=== PATIENT | female | born 1965 | race Caucasian/White ===

== ENCOUNTER 2019-09-18 18:11 | Inpatient (IN) | payer MEDICAID, SELFPAY ==
[2019-09-18 18:12] VITALS: BP 161/112; PULSE 92; RESP 18; TEMP 36.6; O2SAT 99; BMI 25.0
[2019-09-18 18:21] VITALS: BP 128/96; PULSE 86; RESP 79; TEMP 36.9; O2SAT 100
--- NOTE | 2019-09-18 18:21 | EKG12_ITS ---
Test Reason : Blood Pressure : / mmHG Vent. Rate : 081 BPM Atrial Rate : 081 BPM P-R Int : 134 ms QRS Dur : 082 ms QT Int : 382 ms P-R-T Axes : 081 068 066 degrees QTc Int : 443 ms Sinus rhythm with marked sinus arrhythmia Right atrial enlargement Borderline ECG Confirmed by BERE MCLEAN, JEYSON ([id number]), editor news VINEET SMITH ([id number]) on 09/22/2019 10:44:45 AM Referred By: Confirmed By:JEYSON BLACKBURN MD
--- NOTE | 2019-09-18 18:25 | NURSING ---
NO OLD EKGS
[2019-09-18 19:01] LABS: AST(SGOT) 14 U/L (15-37); Alanine Aminotransfer ALT/SGPT 17 U/L (13-56); Albumin, Serum 4.4 g/dL (3.2-5.0); Alkaline Phosphatase 56 U/L (45-117); Anion Gap 4 (5-15); BUN 8 mg/dL (7-18); BUN/Creat Ratio 9.7 RATIO (10-20); Calcium,Total 9.6 mg/dL (8.5-10.1); Chloride 111 mmol/L (98-107); Creatinine, Serum 0.82 mg/dL (0.55-1.02); EST Glomerular Filtration Rate 77 mL/min (>60); Est Glom Filt Rate - Afr Amer 93 mL/min (>60); Estimated Creatinine Clearance 74.28 ml/min; Globulin 4.2 g/dL (2.2-4.2); Glucose 96 mg/dL (74-106); Potassium 3.8 mmol/L (3.5-5.1); Protein, Total 8.6 g/dL (6.4-8.2); Sodium Level 143 mmol/L (136-145)
--- NOTE | 2019-09-18 19:19 | CM.ED ---
Social Work Consult: Substance Abuse Informant: Self Referral. Met with patient in room. Introduced self and social media coordinator role. Patient agreeable to speak with this social media coordinator. Patient states to be seeking medical managed of withdrawal symptoms. Patient state Heroine and Alcohol as substance of choice. Patient states last use of Heroine was this morning and Alcohol was last night. Patient states to consume 3-4 tall boys a night. Patient denies any mental health history. Patient states to have had a suicide attempt when I was younger but no active/recent suicidal thoughts/plans/intents. Patient states to have four adult children that are supportive. Patient state that patient spouse from an overdose on June 12, 2019. Patient was actually using with spouse at the time of the overdose and reports guilt in feeling that patient might have been able to safe him. This social media coordinator normalizing patient emotions/feelings. Patient tearful throughout conversation. Patient states to have relapsed a month ago and to have been sober for a month prior to that. Patient states to have abused substances for the past 12 years with on and off periods of being sober. Patient states no history of outpatient substance abuse resources and is hoping to be able to have follow up care after completing [facility] program. Patient denies having advanced care planning completed and declines further information. Support provided. Telephone call to [facility] treatment Navigator, Stefan. This social media coordinator providing Stefan with above information. Stefan noting need for grief counseling for patient as well. Stefan plans to see patient on Saturday (09/20/2019). PLAN: Admit to [facility] program. Manjeet GOODMAN, RACHEL
[2019-09-18 19:22] LABS: Amphetamine Urine VISTA NEGATIVE (<1000 ng/mL); Barbiturate Urine VISTA NEGATIVE (< 200 ng/mL); Benzodiazepine Urine VISTA NEGATIVE (< 200 ng/mL); Cocaine Urine VISTA NEGATIVE (< 300 ng/mL); Ecstacy Urine VISTA NEGATIVE (< 500 ng/mL); Methadone Urine VISTA NEGATIVE (< 300 ng/mL); PCP Urine VISTA NEGATIVE (< 25 ng/mL); THC Urine VISTA NEGATIVE (< 50 ng/mL); Vista UDS pH Range 6
--- NOTE | 2019-09-18 19:58 | ED.DCSUM_ITS ---
History of Present Illness Chief Complaint: Substance Abuse Detail of Chief Complaint: [facility] out program Informant: Patient Onset: Today Context: Sudden Onset Timing: Continuous Quality: Withdrawal symptoms Location: Generalized Current Severity: Mild Maximum Severity: Mild Worsened by: Has not had any alcoholic beverage since 1829 yesterday Relieved by: Last dose of heroin 0530. Associated Symptoms: Tremors, shakes, nausea Narrative: Patient is a 53-year-old woman who drinks daily. She has 3 large malt liquors a day. She also snorts 1 g of heroin a day. She has been using heroin for 8 years. Daily alcohol years for 1 year. She is been unemployed since 1998. She lives with her son. She denies fever, chills or night sweats. She denies ocular, visual auditory symptoms. She denies chest tightness or heaviness. She denies shortness of breath or difficulty breathing. She denies contact with anyone is been ill or diagnosed with COVID. She does complain of mild abdominal pain with nausea. She denies urologic symptoms. There is no history of trauma. Prior similar symptoms: No Recent Illness/Hospitalization: No - Past Medical History (1) History of hypertension Status: Acute (2) Alcoholism /alcohol abuse Status: Acute (3) Heroin abuse Status: Acute Past Medical History - Allergies and Home Meds Allergies/Adverse Reactions: Allergies tramadol Allergy (Verified 09/18/19 18:14) PT UNSURE OF REACTION Primary Care Physician: Yuli Cox DO [Primary Care Provider] - Prior records reviewed: No Surgical History: noncontributory Lives: With Family Smoking Status: Current every day smoker Alcohol: Heavy - daily use and heavy Drugs: Heroin Review of Systems General: Reports: Malaise. Denies: Chills, Fever, Sweats Eyes: Denies: Visual changes - bilaterally, Blurred Vision - bilaterally ENT: Reports: Rhinorrhea. Denies: Bilateral ear pain, Sore throat Cardiovascular: Reports: Palpitations. Denies: Chest pain Respiratory: Denies: Dyspnea, Cough, Sputum Gastrointestinal: Reports: Abdominal pain, Nausea. Denies: Vomiting, Diarrhea, Constipation Genitourinary: Denies: Dysuria, Hematuria, Frequency Musculoskeletal: Denies: Myalgias, Arthralgias, Neck pain, Back pain, Swelling, Extremity Pain, -, - Skin: Reports: Wounds. Denies: Rash Neurological: Denies: Headache Endocrine: Denies: Polyuria, Polydipsia Hematologic: Denies: Easy bruising, Easy bleeding Allergy: Denies: Uticaria Physical Exam Vital Signs/Narrative: Vital Signs Temp Pulse Resp BP Pulse Ox 09/18/19 18:21 98.5 F 86 79 H 128/96 H 100 09/18/19 18:12 97.8 F 92 18 161/112 H 99 Inital Vital Signs reviewed: Yes General: Well nourished, Well developed, - - And is tearful. She appears embarrassed. Head: Normocephalic, Atraumatic Eyes: Perrl, EOMI, - - No nystagmus.. Negative for: Pale conjunctiva, Scleral icterus ENT: No rhinorrhea, TM's clear Neck: Supple, Nontender Cardiovascular: Regular rate, Regular rhythm, No murmurs, Normal S1, Normal S2 Respiratory: No distress, CTA bilaterally Abdomen: Soft, Nondistended, No masses, Tender, Hyperactive bowel sounds. Negative for: Nontender, Normal bowel sounds, Guarding, Rebound tenderness Rectal: Deferred Back: Nontender, Normal Inspection Extremities: Nontender, No edema Skin: Normal color, No rash. Negative for: Cyanosis, Diaphoresis, Jaundice Neurological: Alert, Oriented x3, Cranial nerves II-XII grossly intact, Normal Strength, Normal Sensation, Normal DTR Psychological: Depressed, Tearful Diagnostic/Tx/Re-eval Laboratory Results 09/18/19 09/18/19 09/18/19 18:30 18:30 18:45 Sodium 143 Potassium 3.8 Chloride 111 H Carbon Dioxide 28.0 Anion Gap 4 L BUN 8 Creatinine 0.82 Estim Creat Clear Calc 74.28 Est GFR (MDRD) Af Amer 93 Est GFR (MDRD) Non-Af 77 BUN/Creatinine Ratio 9.7 L Glucose 96 Calcium 9.6 Total Bilirubin 1.10 H AST 14 L ALT 17 Alkaline Phosphatase 56 Total Protein 8.6 H Albumin 4.4 Globulin 4.2 Albumin/Globulin Ratio 1.0 Urine Opiates Screen NEGATIVE Urine Methadone Screen NEGATIVE Ur Barbiturates Screen NEGATIVE Ur Phencyclidine Scrn NEGATIVE Ur Amphetamines Screen NEGATIVE U Methamphetamin-MDMA NEGATIVE U Benzodiazepines Scrn NEGATIVE Urine Cocaine Screen NEGATIVE U Cannabinoids Screen NEGATIVE Ur Drug Screen Comment Ethyl Alcohol 8.0 Blood work is unremarkable. Alcohol level is negative. Patient was reexamined at 1954. She is now hyperreflexic. Heart rate is 100. She was treated with vena bar. Hospitalist was called for admission for detox. ED Disposition - Plan for ED Patient: Disposition: Acute Care Hospital [facility] Diagnosis: Alcohol withdrawal, Heroin abuse Referrals: Yuli Cox DO [Primary Care Provider] -
--- NOTE | 2019-09-18 20:01 | PCM.HP.STD ---
Problem List (1) History of hypertension Status: Chronic (2) Alcoholism /alcohol abuse Status: Chronic (3) Heroin abuse Status: Chronic (4) Alcohol withdrawal Status: Acute (5) Narcotic withdrawal Status: Acute History of Present Illness Date of Admission: 09/18/19 Chief Complaint: Alcohol and heroin withdrawal. The patient is a 53 year old F with a significant history of tobacco abuse; epilepsy; alcoholic dependence and heroin dependence presenting with alcohol and heroin withdrawal symptoms. Reportedly she drinks 3-4 bottles of twisted tea or ' everett' daily. She has been drinking for 1 year. Last time she drank was around 6:30 PM on the day before presentation. Also she has been using 1 g of heroin every day. She snorts heroin. The last time she used heroin was 5:30 AM on the day of presentation. She reports withdrawal symptoms of nausea, diarrhea, diaphoresis, chills, tremors, anxiety, restlessness and restless legs. Of note her in June 2019 with heroin overdose. Past Medical History Past Medical History (Chronic Problems): Chronic Problems History of hypertension (Chronic) Alcoholism /alcohol abuse (Chronic) Heroin abuse (Chronic) Allergies tramadol Allergy (Verified 09/18/19 18:14) PT UNSURE OF REACTION Home Medications: Ambulatory Orders Medication Instructions Recorded Gabapentin [Neurontin] 800 mg PO TIDCM 09/18/19 traZODone [Desyrel] 50 mg PO QHS 09/18/19 Surgical History: cholecystectomy, hysterectomy, - - section; 2 back surgeries; Smoking Status: Current every day smoker Tobacco Use: Cigarettes Alcohol: Heavy Drugs: Marijuana - Marijuana pills Review of Systems Constitutional: Reports: Chills. Denies: Fever, Weight Change HEENT: Denies: Head Aches, Sinus Congestion, Sinus Drainage Cardiovascular: Denies: Chest Pain, Palpitations Respiratory: Denies: Cough, Shortness of breath at rest, Sputum production Gastrointestinal: Reports: Diarrhea, Nausea. Denies: Abdominal Pain, Vomiting Genitourinary: Denies: Dysuria Musculoskeletal: Denies: Joint Pain, Joint Tenderness Skin: Denies: Rash, Wounds Neurological: Reports: Tremor. Denies: Focal weakness, Numbness, Tingling Psychiatric: Reports: Anxiety. Denies: Depression, Homicidal Ideations, Suicidal Ideations Hematologic/ Lymphatic: Denies: Easy Bruising, Easy Bleeding VTE Information - Inpt Only VTE Present on Admission: No VTE Mechan Device Prophylaxis: None VTE Pharm Prophylaxis ordered?: Yes Patient Problems: Active and Suspected Problems Alcohol withdrawal (Acute) Narcotic withdrawal (Acute) - Physical Exam Vitals/I&O's: Vital Signs Temp Pulse Resp BP Pulse Ox 98.5 F 86 79 H 128/96 H 100 09/18/19 18:21 09/18/19 18:21 09/18/19 18:21 09/18/19 18:21 09/18/19 18:21 Oxygen Delivery Method Room Air Weight: 70.307 kg Body Mass Index (BMI) 25.0 General: Alert, Oriented x3, Cooperative HEENT: Atraumatic, PERRLA, EOMI, Normocephalic Neck: Supple, No JVD, Negative Carotid Bruits Lungs: Clear to auscultation, Normal air movement, No rhonchi, No wheeze, No rales Cardiovascular: Regular rate, Regular Rhythm, Normal S1, Normal S2, No murmurs Abdomen: Bowel Sounds Present, Soft, Non Tender Extremities: No edema, Capillary Refill Less than 3 Seconds Skin: No rashes, No breakdown Musculoskeletal: No Tenderness to Palpation of Joints or Extremities Neurological: Cranial nerves II-XII grossly intact Psych/Mental Status: Normal Affect, Appropriate Laboratory Results 09/18/19 18:30: Sodium 143, Potassium 3.8, Chloride 111 H, Carbon Dioxide 28.0, Anion Gap 4 L, BUN 8, Creatinine 0.82, Estim Creat Clear Calc 74.28, Est GFR (MDRD) Af Amer 93, Est GFR (MDRD) Non-Af 77, BUN/Creatinine Ratio 9.7 L, Glucose 96, Calcium 9.6, Total Bilirubin 1.10 H, AST 14 L, ALT 17, Alkaline Phosphatase 56, Total Protein 8.6 H, Albumin 4.4, Globulin 4.2, Albumin/Globulin Ratio 1.0 09/18/19 18:30: Ethyl Alcohol 8.0 09/18/19 18:45: Urine Opiates Screen NEGATIVE, Urine Methadone Screen NEGATIVE, Ur Barbiturates Screen NEGATIVE, Ur Phencyclidine Scrn NEGATIVE, Ur Amphetamines Screen NEGATIVE, U Methamphetamin-MDMA NEGATIVE, U Benzodiazepines Scrn NEGATIVE, Urine Cocaine Screen NEGATIVE, U Cannabinoids Screen NEGATIVE, Ur Drug Screen Comment Assessment/Plan All Active Problems Alcohol withdrawal (Acute) Narcotic withdrawal (Acute) The patient is a 53 year old F with a significant history of tobacco abuse; epilepsy; alcoholic dependence and heroin dependence presenting with alcohol and heroin withdrawal symptoms and seeking detoxification. Alcohol dependence and withdrawal Received phenobarbital at emergency department. We will continue patient on phenobarbital taper and other adjunctive medications. Patient was counseled. Narcotic dependence and withdrawal We will put patient on Subutex taper and other adjunctive medication. Patient was counseled Case management consult. Tobacco abuse Counseled Nicotine patch prescribed. Epilepsy Home gabapentin continued Seizure precautions Marijuana abuse. She takes marijuana pills Counseled. DVT prophylaxis: Subcutaneous Lovenox. Inpatient E&M: 96809 Init Hosp L3
[2019-09-18] MEDS: Ondansetron 4 MG/2 ML Vial IV (20:16)
[2019-09-18] MEDS: Phenobarbital 32.4 MG Tablet 97.2 MG PO (20:17)
[2019-09-18 20:19] VITALS: BP 105/63; PULSE 83; RESP 16; TEMP 36.7; O2SAT 97
[2019-09-18 21:13] VITALS: BMI 25.7
[2019-09-18 21:19] VITALS: BP 128/80; PULSE 70; RESP 16; TEMP 36.8; O2SAT 99
[2019-09-18 21:22] VITALS: BMI 25.8
[2019-09-18] MEDS: Methocarbamol 750 MG Tablet 1500 MG PO (21:54)
[2019-09-18] MEDS: cloNIDine HCl 0.1 MG Tablet PO (21:55)
[2019-09-18] MEDS: Buprenorphine HCl 2 MG TAB.SUBL SL (21:55)
[2019-09-18] MEDS: traZODone 100 MG Tablet PO (21:55)
[2019-09-19] VITALS (7 sets, daily range): BP systolic 92–104; BP diastolic 40–64; PULSE 64–80; RESP 12–18; TEMP 36.3–36.9; O2SAT 92–100
[2019-09-19] MEDS: Dicyclomine 10 MG Capsule 20 MG PO (00:55)
[2019-09-19] MEDS: hydrOXYzine PAM 25 MG Capsule 50 MG PO ×2 (00:55→20:24)
[2019-09-19] MEDS: Phenobarbital 32.4 MG Tablet PO ×6 (00:55→20:15)
[2019-09-19] MEDS: Buprenorphine HCl 2 MG TAB.SUBL SL ×3 (05:15→22:08)
--- NOTE | 2019-09-19 08:38 | PCM.PROGNOTE ---
Patient Problems: Active and Suspected Problems Alcohol withdrawal (Acute) Narcotic withdrawal (Acute) Subjective: Chief complaint: Follow-up after admission for acute alcohol withdrawal and acute opioid withdrawal. Patient seen and examined. No acute events overnight. Still complaining of anxiety and restlessness as well as shakiness, some improvement reported. Still having diarrhea, no abdominal pain. Denied fever or chills. Her vital signs are stable. - Physical Exam Vitals/I&O's: Vital Signs Temp Pulse Resp BP Pulse Ox 98.3 F 69 16 92/56 L 92 09/19/19 05:20 09/19/19 05:20 09/19/19 05:20 09/19/19 05:20 09/19/19 07:55 Oxygen Delivery Method Room Air Weight: 159 lb 13.362 oz Body Mass Index (BMI) 25.7 General: Alert, Oriented x3, Cooperative, No apparent distress HEENT: Atraumatic, PERRLA, EOMI, Normocephalic Oral: Moist Mucosa, No Gingival or Mucosal Lesions/ Ulcerations Neck: Supple, No JVD, Negative Carotid Bruits, Trachea Midline, Thyroid Normal Size and Texture Lungs: Clear to auscultation, Normal air movement, No rhonchi, No wheeze, No rales Cardiovascular: Regular rate, Regular Rhythm, Normal S1, Normal S2, PMI Normal Abdomen: Bowel Sounds Present, Soft, Non Tender, Non-Distended, No Hepato-splenomegaly Extremities: No clubbing, No cyanosis, No edema Skin: No rashes, No breakdown Lymphatic: No Cervical, Supraclavicular, or Inguinal Adenopathy Neurological: Cranial nerves II-XII grossly intact, Neuro grossly intact Psych/Mental Status: Normal Affect, Appropriate, Alert and oriented to time, place, person, mood and affect Laboratory Results 09/18/19 18:30: Sodium 143, Potassium 3.8, Chloride 111 H, Carbon Dioxide 28.0, Anion Gap 4 L, BUN 8, Creatinine 0.82, Estim Creat Clear Calc 74.28, Est GFR (MDRD) Af Amer 93, Est GFR (MDRD) Non-Af 77, BUN/Creatinine Ratio 9.7 L, Glucose 96, Calcium 9.6, Total Bilirubin 1.10 H, AST 14 L, ALT 17, Alkaline Phosphatase 56, Total Protein 8.6 H, Albumin 4.4, Globulin 4.2, Albumin/Globulin Ratio 1.0 09/18/19 18:30: Ethyl Alcohol 8.0 09/18/19 18:45: Urine Opiates Screen NEGATIVE, Urine Methadone Screen NEGATIVE, Ur Barbiturates Screen NEGATIVE, Ur Phencyclidine Scrn NEGATIVE, Ur Amphetamines Screen NEGATIVE, U Methamphetamin-MDMA NEGATIVE, U Benzodiazepines Scrn NEGATIVE, Urine Cocaine Screen NEGATIVE, U Cannabinoids Screen NEGATIVE, Ur Drug Screen Comment Current Medications Al Hydroxide/Mg Hydroxide (Mylanta Ii) 30 ml PO Q6H PRN PRN PRN Reason: Gastric Burning Buprenorphine HCl (Buprenorphine Hcl) 4 mg SL Q8H [facility]; Taper Stop: 09/21/19 21:44 Last Admin: 09/19/19 05:15 Dose: 4 mg Documented by: Clonidine (Catapres) 0.1 mg PO Q8H PRN PRN PRN Reason: RESTLESSNESS Last Admin: 09/18/19 21:55 Dose: 0.1 mg Documented by: Dicyclomine HCl (Bentyl) 20 mg PO Q6H PRN PRN PRN Reason: abdominal discomfort Last Admin: 09/19/19 00:55 Dose: 20 mg Documented by: Enoxaparin Sodium (Lovenox) 40 mg SC DAILY [facility] Folic Acid (Folic Acid) 1 mg PO DAILY@0800 [facility] Gabapentin (Neurontin) 800 mg PO TIDCM [facility] Hydroxyzine Pamoate (Vistaril Pamoate Capsule) 50 mg PO Q4H PRN PRN PRN Reason: mild anxiety Last Admin: 09/19/19 00:55 Dose: 50 mg Documented by: Loperamide HCl (Imodium) 2 mg PO Q4H PRN PRN PRN Reason: LOOSE STOOLS Methocarbamol (Methocarbamol) 1,500 mg PO Q6H PRN PRN PRN Reason: MUSCLE SPASM Last Admin: 09/18/19 21:54 Dose: 1,500 mg Documented by: Nicotine (Nicoderm Cq (Pbkc)) 21 mg TRANSDERM. DAILY [facility] Ondansetron HCl (Zofran) 8 mg PO Q8H PRN PRN PRN Reason: NAUSEA Phenobarbital (Phenobarbital) 97.2 mg PO Q4H [facility]; Taper Stop: 09/23/19 08:59 Last Admin: 08/08/20 05:15 Dose: 97.2 mg Documented by: Sodium Chloride () 10 - 40 ml IV UD PRN PRN Reason: SALINE FLUSH Thiamine HCl (Vitamin B1) 100 mg PO DAILYCM [facility] Trazodone HCl (Desyrel) 100 mg PO QHS PRN PRN Reason: INSOMNIA Last Admin: 09/18/19 21:55 Dose: 100 mg Documented by: Medical Necessity - Tobacco Use Smoking Status: Current every day smoker Tobacco Use: Cigarettes Assessment/Plan All Active Problems Alcohol withdrawal (Acute) Narcotic withdrawal (Acute) This is a 53 years old female patient presented to the emergency department requesting admission for acute alcohol and acute opiate withdrawal for medical stabilization. #1 acute alcohol withdrawal: She is on tapering phenobarbital, thiamine and folic acid. BMP and LFT were unremarkable. Urine drug screen was negative. Blood alcohol level was 8. Her vital signs are stable. Patient reported minimal improvement, definitely better than yesterday. Patient still symptomatic, requiring inpatient treatment and she qualifies for high-level care. Plan to continue same treatment. #2 acute opiate withdrawal: She is on Subutex taper, PRN Catapres, Bentyl, Vistaril, Imodium, methocarbamol, Zofran and trazodone. Urine drug screen was negative. Plan to continue same treatment. #3 seizure disorder: Stable, continue on gabapentin 3 times daily #4 tobacco abuse: She is on NicoDerm patch. #5 DVT prophylaxis: Subcu Lovenox. This note was generated with [employer] dictation software. It may contain incorrect words, spelling, and punctuation that were not noted in checking the note before signing. Inpatient E&M: 79889 Subs Hosp L2
[2019-09-19] MEDS: Enoxaparin 40 MG/0.4 ML Syringe SC (09:24)
[2019-09-19] MEDS: Thiamine Hydrochloride 100 MG Tablet PO (09:24)
[2019-09-19] MEDS: Gabapentin 800 MG Tablet PO ×3 (09:24→16:31)
[2019-09-19] MEDS: Folic Acid 1 MG Tablet PO (09:24)
[2019-09-19] MEDS: Loperamide 2 MG Capsule PO (12:46)
[2019-09-19] MEDS: 0.9% Saline Lock 10 ML Syringe IV (16:31)
[2019-09-19] MEDS: Methocarbamol 750 MG Tablet 1500 MG PO (20:24)
[2019-09-19] MEDS: traZODone 100 MG Tablet PO (22:14)
--- NOTE | 2019-09-19 22:14 | NURSING ---
Cat RN gave two 50 mg tabs of Trazodone to equal 100 mg & personally verified the med with me.
[2019-09-20] MEDS: Phenobarbital 32.4 MG Tablet PO ×6 (01:01→20:52)
[2019-09-20] MEDS: 0.9% Saline Lock 10 ML Syringe IV (05:18)
[2019-09-20] MEDS: Buprenorphine HCl 2 MG TAB.SUBL SL ×3 (05:18→20:52)
[2019-09-20 05:21] VITALS: BP 104/45; PULSE 77; RESP 16; TEMP 36.9; O2SAT 93
--- NOTE | 2019-09-20 08:11 | PN_ITS ---
Patient Problems: Active and Suspected Problems Alcohol withdrawal (Acute) Narcotic withdrawal (Acute) Subjective: Chief complaint: Follow-up after admission for acute alcohol and acute opioid withdrawal. Patient seen and examined. No acute events overnight. Patient reported that anxiety and restlessness continue to improve slowly. She was able to sleep last night. Still having some diarrhea but improved. Her vital signs are stable. - Physical Exam Vitals/I&O's: Vital Signs Temp Pulse Resp BP Pulse Ox 98.5 F 77 16 104/45 L 93 09/20/19 05:21 09/20/19 05:21 09/20/19 05:21 09/20/19 05:21 09/20/19 05:21 Oxygen Delivery Method Room Air Weight: 159 lb 13.362 oz Body Mass Index (BMI) 25.7 Intake and Output for Last 24 Hours 09/18/19 09/19/19 09/20/19 23:59 23:59 23:59 Intake Total 3300 / 3300 Balance 3300 / 3300 General: Alert, Oriented x3, Cooperative, No apparent distress HEENT: Atraumatic, PERRLA, EOMI, Normocephalic Oral: Moist Mucosa, No Gingival or Mucosal Lesions/ Ulcerations Neck: Supple, No JVD, Negative Carotid Bruits, Trachea Midline, Thyroid Normal Size and Texture Lungs: Clear to auscultation, Normal air movement, No rhonchi, No wheeze, No rales Cardiovascular: Regular rate, Regular Rhythm, Normal S1, Normal S2, No murmurs, PMI Normal Abdomen: Bowel Sounds Present, Soft, Non Tender, Non-Distended, No Hepato- splenomegaly Extremities: No clubbing, No cyanosis, No edema Skin: No rashes, No breakdown Lymphatic: No Cervical, Supraclavicular, or Inguinal Adenopathy Neurological: Cranial nerves II-XII grossly intact, Neuro grossly intact Psych/Mental Status: Normal Affect, Appropriate, Alert and oriented to time, place, person, mood and affect Current Medications Al Hydroxide/Mg Hydroxide (Mylanta Ii) 30 ml PO Q6H PRN PRN PRN Reason: Gastric Burning Buprenorphine HCl (Buprenorphine Hcl) 2 mg SL Q8H [facility]; Taper Stop: 09/21/19 21:44 Last Admin: 09/20/19 05:18 Dose: 2 mg Documented by: Clonidine (Catapres) 0.1 mg PO Q8H PRN PRN PRN Reason: RESTLESSNESS Last Admin: 09/18/19 21:55 Dose: 0.1 mg Documented by: Dicyclomine HCl (Bentyl) 20 mg PO Q6H PRN PRN PRN Reason: abdominal discomfort Last Admin: 09/19/19 00:55 Dose: 20 mg Documented by: Enoxaparin Sodium (Lovenox) 40 mg SC DAILY [facility] Last Admin: 09/19/19 09:24 Dose: 40 mg Documented by: Folic Acid (Folic Acid) 1 mg PO DAILY@0800 [facility] Last Admin: 09/19/19 09:24 Dose: 1 mg Documented by: Gabapentin (Neurontin) 800 mg PO TIDCM [facility] Last Admin: 09/19/19 16:31 Dose: 800 mg Documented by: Hydroxyzine Pamoate (Vistaril Pamoate Capsule) 50 mg PO Q4H PRN PRN PRN Reason: mild anxiety Last Admin: 09/19/19 20:24 Dose: 50 mg Documented by: Loperamide HCl (Imodium) 2 mg PO Q4H PRN PRN PRN Reason: LOOSE STOOLS Last Admin: 09/19/19 12:46 Dose: 2 mg Documented by: Methocarbamol (Methocarbamol) 1,500 mg PO Q6H PRN PRN PRN Reason: MUSCLE SPASM Last Admin: 09/19/19 20:24 Dose: 1,500 mg Documented by: Nicotine (Nicoderm Cq (Pbkc)) 21 mg TRANSDERM. DAILY [facility] Last Admin: 09/19/19 09:24 Dose: 21 mg Documented by: Ondansetron HCl (Zofran) 8 mg PO Q8H PRN PRN PRN Reason: NAUSEA Phenobarbital (Phenobarbital) 97.2 mg PO Q4H [facility]; Taper Stop: 09/23/19 08:59 Last Admin: 09/20/19 05:17 Dose: 97.2 mg Documented by: Sodium Chloride () 10 - 40 ml IV UD PRN PRN Reason: SALINE FLUSH Last Admin: 09/20/19 05:18 Dose: 10 ml Documented by: Thiamine HCl (Vitamin B1) 100 mg PO DAILYCM [facility] Last Admin: 09/19/19 09:24 Dose: 100 mg Documented by: Trazodone HCl (Desyrel) 100 mg PO QHS PRN PRN Reason: INSOMNIA Last Admin: 09/19/19 22:14 Dose: 100 mg Documented by: Medical Necessity - Tobacco Use Smoking Status: Current every day smoker Tobacco Use: Cigarettes Assessment/Plan All Active Problems Alcohol withdrawal (Acute) Narcotic withdrawal (Acute) This is a 53 years old female patient presented to the emergency department requesting admission for acute alcohol and acute opiate withdrawal for medical stabilization. #1 acute alcohol withdrawal: She is on day 2 of tapering phenobarbital, thiamine and folic acid. She reported slow improvement of her symptoms. Her vital signs are stable. BMP and LFT were unremarkable. Urine drug screen was negative. Blood alcohol level was 8. Patient continued to have symptoms of withdrawal and she qualifies for inpatient treatment with high-level care. Plan to continue same treatment. #2 acute opiate withdrawal: She is on day 2 of Subutex taper, PRN Catapres, Bentyl, Vistaril, Imodium, methocarbamol, Zofran and trazodone. Urine drug screen was negative. As mentioned above, her symptoms has been improving. Plan to continue same treatment. #3 seizure disorder: Stable, continue on gabapentin 3 times daily. #4 tobacco abuse: Continue on NicoDerm patch. #5 DVT prophylaxis: Subcu Lovenox. This note was generated with [employer] dictation software. It may contain incorrect words, spelling, and punctuation that were not noted in checking the note before signing. Inpatient E&M: [id number] Subs Hosp L2
[2019-09-20 08:16] VITALS: O2SAT 93
[2019-09-20] MEDS: Thiamine Hydrochloride 100 MG Tablet PO (08:51)
[2019-09-20] MEDS: Gabapentin 800 MG Tablet PO ×3 (08:51→17:26)
[2019-09-20] MEDS: Enoxaparin 40 MG/0.4 ML Syringe SC (08:53)
[2019-09-20] MEDS: Folic Acid 1 MG Tablet PO (08:53)
[2019-09-20 09:00] VITALS: BP 98/39; PULSE 79; RESP 18; TEMP 36.6; O2SAT 93
[2019-09-20] MEDS: Methocarbamol 750 MG Tablet 1500 MG PO ×2 (09:14→17:35)
[2019-09-20 14:44] VITALS: BP 95/62; PULSE 77; RESP 16; TEMP 37.6; O2SAT 97
[2019-09-20] MEDS: hydrOXYzine PAM 25 MG Capsule 50 MG PO ×2 (14:52→21:00)
[2019-09-20] MEDS: Dicyclomine 10 MG Capsule 20 MG PO (17:35)
[2019-09-20] MEDS: traZODone 100 MG Tablet PO (21:00)
[2019-09-20 21:08] VITALS: BP 108/58; PULSE 86; RESP 16; TEMP 36.8; O2SAT 96
[2019-09-21] MEDS: Phenobarbital 32.4 MG Tablet PO ×5 (01:29→21:13)
[2019-09-21 06:00] VITALS: BP 119/71; PULSE 80; RESP 16; TEMP 37.2; O2SAT 98
[2019-09-21 07:15] VITALS: O2SAT 96
[2019-09-21 08:47] VITALS: BP 109/50; PULSE 81; RESP 14; TEMP 36.4; O2SAT 96
[2019-09-21] MEDS: Buprenorphine HCl 2 MG TAB.SUBL SL (08:50)
[2019-09-21] MEDS: Folic Acid 1 MG Tablet PO (08:50)
[2019-09-21] MEDS: Thiamine Hydrochloride 100 MG Tablet PO (08:50)
[2019-09-21] MEDS: Gabapentin 800 MG Tablet PO ×3 (08:50→17:11)
--- NOTE | 2019-09-21 10:16 | PCM.PN.HOSP ---
Patient Problems: Active and Suspected Problems Alcohol withdrawal (Acute) Narcotic withdrawal (Acute) Subjective: Pt states that she is still a bit tremulous and shaky and having sig anxiety still. Feeling better than when she came in though. Met with 180 yesterday and has information for follow-up there after d/c. Vitals/I&O's: Vital Signs Temp Pulse Resp BP Pulse Ox 97.5 F L 81 14 109/50 L 96 09/21/19 08:47 09/21/19 08:47 09/21/19 08:47 09/21/19 08:47 09/21/19 08:47 Oxygen Delivery Method Room Air Weight: 72.5 kg Body Mass Index (BMI) 25.7 Intake and Output for Last 24 Hours 09/19/19 09/20/19 09/21/19 23:59 23:59 23:59 Intake Total 3300 / 3300 930 / 930 400 / 400 Balance 3300 / 3300 930 / 930 400 / 400 General: Alert, Oriented x3, Cooperative, Well developed, Well nourished Lungs: Clear to auscultation, No rhonchi, No wheeze, No rales, Diminished - diffusely diminished Cardiovascular: Regular rate, Regular Rhythm, Normal S1, Normal S2, No murmurs, No Ectopic Activity, No rub noted, No Gallop Abdomen: Bowel Sounds Present, Soft, Non Tender, Non-Distended, No hernias noted Extremities: No clubbing, No cyanosis, No edema, Peripheral Pulses Normal Skin: No rashes, No breakdown Psych/Mental Status: Appropriate, Anxious, - - A&O x 3 Current Medications Al Hydroxide/Mg Hydroxide (Mylanta Ii) 30 ml PO Q6H PRN PRN PRN Reason: Gastric Burning Buprenorphine HCl (Buprenorphine Hcl) 2 mg SL Q12H [facility]; Taper Stop: 09/21/19 21:44 Last Admin: 09/21/19 08:50 Dose: 2 mg Documented by: Clonidine (Catapres) 0.1 mg PO Q8H PRN PRN PRN Reason: RESTLESSNESS Last Admin: 09/18/19 21:55 Dose: 0.1 mg Documented by: Dicyclomine HCl (Bentyl) 20 mg PO Q6H PRN PRN PRN Reason: abdominal discomfort Last Admin: 08/09/20 17:35 Dose: 20 mg Documented by: Enoxaparin Sodium (Lovenox) 40 mg SC DAILY [facility] Last Admin: 09/21/19 08:51 Dose: Not Given Documented by: Folic Acid (Folic Acid) 1 mg PO DAILY@0800 [facility] Last Admin: 09/21/19 08:50 Dose: 1 mg Documented by: Gabapentin (Neurontin) 800 mg PO TIDCM [facility] Last Admin: 09/21/19 08:50 Dose: 800 mg Documented by: Hydroxyzine Pamoate (Vistaril Pamoate Capsule) 50 mg PO Q4H PRN PRN PRN Reason: mild anxiety Last Admin: 09/20/19 21:00 Dose: 50 mg Documented by: Loperamide HCl (Imodium) 2 mg PO Q4H PRN PRN PRN Reason: LOOSE STOOLS Last Admin: 09/19/19 12:46 Dose: 2 mg Documented by: Methocarbamol (Methocarbamol) 1,500 mg PO Q6H PRN PRN PRN Reason: MUSCLE SPASM Last Admin: 09/20/19 17:35 Dose: 1,500 mg Documented by: Nicotine (Nicoderm Cq (Pbkc)) 21 mg TRANSDERM. DAILY [facility] Last Admin: 09/21/19 08:50 Dose: 21 mg Documented by: Ondansetron HCl (Zofran) 8 mg PO Q8H PRN PRN PRN Reason: NAUSEA Phenobarbital (Phenobarbital) 64.8 mg PO Q6H [facility]; Taper Stop: 09/23/19 08:59 Last Admin: 09/21/19 08:50 Dose: 64.8 mg Documented by: Sodium Chloride () 10 - 40 ml IV UD PRN PRN Reason: SALINE FLUSH Last Admin: 09/20/19 05:18 Dose: 10 ml Documented by: [facility] ([facility]) [facility] Last Admin: 09/21/19 08:50 Dose: 100 mg Documented by: Trazodone HCl (Desyrel) 100 mg PO QHS PRN PRN Reason: INSOMNIA Last Admin: 09/20/19 21:00 Dose: 100 mg Documented by: STROKE Vital Signs/Narrative: Vital Signs Temp Pulse Resp BP Pulse Ox 09/21/19 08:47 97.5 F L 81 14 109/50 L 96 09/21/19 07:15 96 Medical Necessity - Tobacco Use Smoking Status: Current every day smoker Tobacco Use: Cigarettes Assessment/Plan All Active Problems Alcohol withdrawal (Acute) Narcotic withdrawal (Acute) Acute Alcohol Withdrawal -Day 3 of phenobarb -sx improving -continue thiamine and folate (can continue thiamine until tomorrow) -with continued sx will continue taper and likely d/c tomorrow -180 f/u at d/c Acute Opiate Withdrawal -Day 3 of Subutex -continue PRN's -was seen by 180 and plans to f/u at d/c Seizure d/o -no issues -continue Gabapentin TID Tobacco Abuse -Patch -recommend cessation DVT Prophylaxis Lovenox Code Status -Full Inpatient E&M: 77937 Subs Hosp L2
--- NOTE | 2019-09-21 11:16 | CASEMGMT ---
Social Work Note SW updated that pt stated that she was provided [facility] resources but is not sure what the follow up plan is. SW placed a call to [facility] at [facility] and left message asking for update on what pt's plan is for discharge. Ester Santiago [employer], COOKER MECHANIC
[2019-09-21] MEDS: hydrOXYzine PAM 25 MG Capsule 50 MG PO ×2 (11:53→19:54)
--- NOTE | 2019-09-21 14:43 | CHAPLAIN ---
Type of Pastoral Visit _x__ Initial Visit ___ Follow-up Visit ___ On-call Visit ___ General Patient Visit ___ Spiritual Assessment ___ Family Conference ___ Bereavement ___ Rapid Response ___ Code Blue ___ Other (describe below) Pastoral Care Referral From _x__ Patient ___ Family ___ Nurse ___ Physician ___ Inspecting Supervisor ___ Carton Repairer ___ Other (describe below) Sacrament/Intervention _x__ Active listening ___ Anointing ___ Methodist ___ Bereavement ___ Communion ___ Bhakti exploration ___ _x__ Life review _x__ Prayer ___ Reconciliation ___ Sacrament of Sick _x__ Supportive presence ___ Wedding ___ Other (describe below) Pastoral Comments patient is awake and alert, sitting up in bed; pt welcomes spiritual care visit; pt describes her addiction and the of her by overdose; pt has moved to different town and is living with her son; pt states she has detoxed previously but never by her choice until this weekend; pt states she will go to counseling for follow up and will try taking suboxtin; pt does not have connection to jehovah's witness/bhakti group; pt appears to have limited support system and admits that she has not talked openly/dealt with of her spouse; pt does welcome prayer support and future visits from this financial service representative
[2019-09-21 15:04] VITALS: BP 98/57; PULSE 88; RESP 16; TEMP 36.9; O2SAT 95
[2019-09-21 19:45] VITALS: BP 110/55; PULSE 89; RESP 16; TEMP 37.1; O2SAT 93
[2019-09-21] MEDS: Dicyclomine 10 MG Capsule 20 MG PO (21:15)
[2019-09-22 02:32] VITALS: BP 122/59; PULSE 88; RESP 18; TEMP 36.7; O2SAT 96
[2019-09-22] MEDS: Phenobarbital 32.4 MG Tablet PO ×2 (02:41→08:19)
[2019-09-22 07:08] VITALS: O2SAT 95
[2019-09-22 08:16] VITALS: BP 96/32; PULSE 72; RESP 18; TEMP 36.6; O2SAT 97
[2019-09-22] MEDS: Thiamine Hydrochloride 100 MG Tablet PO (08:17)
[2019-09-22] MEDS: Gabapentin 800 MG Tablet PO (08:17)
[2019-09-22] MEDS: Folic Acid 1 MG Tablet PO (08:17)
--- NOTE | 2019-09-22 09:04 | DCINST_ITS ---
- Discharge Diagnoses Current Active Problems: Current Active and Chronic Problems History of hypertension (Chronic) Alcoholism /alcohol abuse (Chronic) Heroin abuse (Chronic) Alcohol withdrawal (Acute) Narcotic withdrawal (Acute) You will use the following diet at home:: No restrictions Your food should be the consistency of: Regular Your liquids should be the consistency of: Regular/Thin Discharge Activity: Return to Normal Activity Allergies/Adverse Reactions: Allergies tramadol Allergy (Verified 09/18/19 18:14) PT UNSURE OF REACTION Medications to take at Discharge Gabapentin [Neurontin] 800 mg PO TIDCM 09/18/19 traZODone [Desyrel] 50 mg PO QHS 09/18/19 hydrOXYzine pamoate capsule [Vistaril pamoate capsule] 50 mg PO Q4H PRN PRN #90 cap 09/22/19 The following prescriptions were given: hydrOXYzine pamoate capsule [Vistaril pamoate capsule] 50 mg PO Q4H PRN PRN #90 cap PRN Reason: mild anxiety Transmission Status: Pending to [facility] [place], [place] [address] Primary Care Physician: Yuli Cox DO [Primary Care Provider] - Please follow up with your Primary Care Physician in: 1-2 weeks Test Results: Test results from this visit will be discussed in further detail at your follow- up appointment, if applicable. Please Follow Up With: 180 When: as scheduled
--- NOTE | 2019-09-22 09:06 | DS.PCM_ITS ---
Discharge Date and Diagnosis - Problem List Patient Problems: Active and Suspected Problems Alcohol withdrawal (Acute) Narcotic withdrawal (Acute) Date of Admission: 09/18/19 Date of Discharge: 09/22/19 - Primary Discharge Diagnosis Acute Problems: Active Problems Alcohol withdrawal (Acute) Narcotic withdrawal (Acute) - Secondary Discharge Diagnosis Chronic Problems: Chronic Problems History of hypertension (Chronic) Alcoholism /alcohol abuse (Chronic) Heroin abuse (Chronic) Hospital Course and Treatment None Operations: None Procedures: None Summary of Care Provided: Ms Hobbs is a 53 year old F with a significant history of tobacco abuse, epilepsy, alcoholic dependence, and heroin dependence who presented to the ED on 09/18/2019 with alcohol and heroin withdrawal symptoms. She was drinking 3-4 bottles of twisted tea or Jagermeister daily. She had been drinking for 1 year. Her last drink prior to admission was around 6:30 PM on the day before presentation. Also she had been using 1 g of heroin every day. She does not use IVD and was snorting heroin. The last time she used heroin was 5:30 AM on the day of presentation. She reported withdrawal symptoms of nausea, diarrhea, diaphoresis, chills, tremors, anxiety, restlessness and restless legs upon ad mission. She was treated with a Subutex and Phenobarb taper, Treated with Thiamine and Folate, and other supportive care. She was seen by 180 and has an appt to f/u with them on 09/27. She is now feeling much better and states that she is committed to not using again. She is asking for a Vistaril script which was given and sent electronically to her pharmacy. Of note her in June of 2019 from a heroin OD. She was d/c in stable condition and has f/u appts for her addiction issues. Patient Problems: Active and Suspected Problems Alcohol withdrawal (Acute) Narcotic withdrawal (Acute) - Physical Exam Vitals/I&O's: Vital Signs Temp Pulse Resp BP Pulse Ox 97.8 F 72 18 96/32 L 97 09/22/19 08:16 09/22/19 08:16 09/22/19 08:16 09/22/19 08:16 09/22/19 08:16 Oxygen Delivery Method Room Air Weight: 72.5 kg Body Mass Index (BMI) 25.7 Intake and Output for Last 24 Hours 09/20/19 09/21/19 09/22/19 23:59 23:59 23:59 Intake Total 930 / 930 2300 / 2700 400 / 400 Balance 930 / 930 2300 / 2700 400 / 400 General: Alert, Oriented x3, Cooperative, No apparent distress, Well developed, Well nourished, - - WF sitting up in bed eating breakfast and watching TV, appears well and comfortable HEENT: Atraumatic, PERRLA, EOMI, Normocephalic, EAC Clear Oral: Moist Mucosa, No Gingival or Mucosal Lesions/ Ulcerations Neck: Supple, Trachea Midline Lungs: Clear to auscultation, Normal air movement, No rhonchi, No wheeze, No rales Cardiovascular: Regular rate, Regular Rhythm, Normal S1, Normal S2, No murmurs, No Ectopic Activity, No rub noted, No Gallop Abdomen: Bowel Sounds Present, Soft, Non Tender, Non-Distended, No hernias noted Extremities: No clubbing, No cyanosis, No edema Skin: No rashes, No breakdown Musculoskeletal: No Tenderness to Palpation of Joints or Extremities, No Muscle Wasting Neurological: Cranial nerves II-XII grossly intact, Neuro grossly intact, Muscle tone normal, Sensory exam intact to light touch and pain, Coordination normal Psych/Mental Status: Normal Affect, Appropriate, Alert and oriented to time, place, person, mood and affect - calmer today Current Medications Al Hydroxide/Mg Hydroxide (Mylanta Ii) 30 ml PO Q6H PRN PRN PRN Reason: Gastric Burning Clonidine (Catapres) 0.1 mg PO Q8H PRN PRN PRN Reason: RESTLESSNESS Last Admin: 09/18/19 21:55 Dose: 0.1 mg Documented by: Dicyclomine HCl (Bentyl) 20 mg PO Q6H PRN PRN PRN Reason: abdominal discomfort Last Admin: 09/21/19 21:15 Dose: 20 mg Documented by: Enoxaparin Sodium (Lovenox) 40 mg SC DAILY [facility] Last Admin: 09/22/19 08:17 Dose: Not Given Documented by: Folic Acid (Folic Acid) 1 mg PO DAILY@0800 [facility] Last Admin: 09/22/19 08:17 Dose: 1 mg Documented by: Gabapentin (Neurontin) 800 mg PO TIDCM [facility] Last Admin: 09/22/19 08:17 Dose: 800 mg Documented by: Hydroxyzine Pamoate (Vistaril Pamoate Capsule) 50 mg PO Q4H PRN PRN PRN Reason: mild anxiety Last Admin: 09/21/19 19:54 Dose: 50 mg Documented by: Loperamide HCl (Imodium) 2 mg PO Q4H PRN PRN PRN Reason: LOOSE STOOLS Last Admin: 09/19/19 12:46 Dose: 2 mg Documented by: Methocarbamol (Methocarbamol) 1,500 mg PO Q6H PRN PRN PRN Reason: MUSCLE SPASM Last Admin: 09/20/19 17:35 Dose: 1,500 mg Documented by: Nicotine (Nicoderm Cq (Pbkc)) 21 mg TRANSDERM. DAILY [facility] Last Admin: 09/22/19 08:17 Dose: 21 mg Documented by: Ondansetron HCl (Zofran) 8 mg PO Q8H PRN PRN PRN Reason: NAUSEA Phenobarbital (Phenobarbital) 32.4 mg PO Q6H [facility]; Taper Stop: 09/23/19 08:59 Last Admin: 09/22/19 08:19 Dose: 32.4 mg Documented by: Sodium Chloride () 10 - 40 ml IV UD PRN PRN Reason: SALINE FLUSH Last Admin: 09/20/19 05:18 Dose: 10 ml Documented by: Thiamine HCl (Vitamin B1) 100 mg PO DAILYCM [facility] Last Admin: 09/22/19 08:17 Dose: 100 mg Documented by: Trazodone HCl (Desyrel) 100 mg PO QHS PRN PRN Reason: INSOMNIA Last Admin: 09/20/19 21:00 Dose: 100 mg Documented by: Discharge Activity: Return to Normal Activity Home Medications: Medications to take at Discharge Gabapentin [Neurontin] 800 mg PO TIDCM 09/18/19 traZODone [Desyrel] 50 mg PO QHS 09/18/19 hydrOXYzine pamoate capsule [Vistaril pamoate capsule] 50 mg PO Q4H PRN PRN #90 cap 09/22/19 Following Prescriptions Were Given to Patient: hydrOXYzine pamoate capsule [Vistaril pamoate capsule] 50 mg PO Q4H PRN PRN #90 cap PRN Reason: mild anxiety Transmission Status: Pending to [facility] Primary Care Physician: Yuli Cox DO [Primary Care Provider] - Please follow up with your Primary Care Physician in: 1-2 weeks Please Follow Up With: 180 When: as scheduled Medical Necessity - Tobacco Use Smoking Status: Current every day smoker Tobacco Use: Cigarettes Meaningful Use Info Meaningful Use Diagnoses (Choose all that apply): None applicable Inpatient E&M: 99030 [facility] Hosp
== END 2019-09-22 10:23 | disposition home or self-care (01) | DRG 773 ==
LOC: ED 20:05 → MS3 20:34
PROVIDERS: Admitting Provider Hospitalist; Emergency Provider Emergency Medicine; PCP Family Medicine; Visit Provider Internal Medicine
DX: F10.239 Alcohol dependence with withdrawal, unspecified (principal); I10 Essential (primary) hypertension; G40.909 Epilepsy, unspecified, not intractable, without status epilepticus; F11.23 Opioid dependence with withdrawal; F12.10 Cannabis abuse, uncomplicated; F41.9 Anxiety disorder, unspecified; F17.210 Nicotine dependence, cigarettes, uncomplicated; Y90.0 Blood alcohol level of less than 20 mg/100 ml
CPT/HCPCS: 80053; 80307; 80320; 93005; 99284; 99406; A4216; G0480; J2405

== ENCOUNTER 2019-10-05 13:02 | Inpatient (IN) | payer MEDICAID, SELFPAY ==
[2019-10-05 13:03] VITALS: BP 124/94; PULSE 95; RESP 18; TEMP 36; O2SAT 99; BMI 25.0
--- NOTE | 2019-10-05 13:34 | ED.VISSUMM ---
- ER Visit Summary Date of Service: 10/05/19 Chief Complaint: Need detox from heroin and alcohol History of Present Illness: The patient is a [address] Christie. She reports that she drinks alcohol daily. She typically has 3 tall twisted teas per day. Her last drink was yesterday. She also snorts heroin daily. Her last use of this was yesterday as well. She denies any IV heroin use. Patient reports that she went through detox approximately 3 weeks ago and was clean for 3 days. Patient reports that she feels as though she is an opiate withdrawal at this time. She has cramping abdominal pain. She is been nausea and vomited twice. No blood in her emesis. She had 4 episodes of diarrhea today. She also complains of diffuse myalgias and chills. Physical Examination: Vitals: Stable. Afebrile. General: Well-nourished and well-developed. Head: Normocephalic atraumatic. Neck: Supple, no lymphadenopathy. No JVD. Nontender. Cardiovascular: Regular rate and rhythm. No murmurs. Respiratory: No respiratory distress. Clear to auscultation bilaterally. Abdominal: Soft, nontender, nondistended, normal bowel sounds. No guarding, rebound, or peritoneal signs. Back: Nontender. Extremities: Nontender, no edema. Skin: Normal color, no rash. Neurologic: Alert and oriented ?3. Cranial nerves II through XII are intact. Normal strength and sensation. Psych: Depressed affect. No suicidal homicidal ideation. Test Results: Pending Emergency Department Course and Treatment: Patient had an IV placed. She was given Zofran for her nausea. She is resting more comfortably. Treatment Plan: Patient was discussed with Dr. Rico and will be admitted for further evaluation treatment. Disposition: Admitted in stable condition. Impression: 1. Opiate abuse. 2. Alcohol abuse. This note was generated with Tally[employer] dictation software. It may contain incorrect words, spelling, and punctuation that were not noted in review of the chart prior to signing ED Disposition - Plan for ED Patient: Referrals: Yuli Cox, [Primary Care Provider] -
--- NOTE | 2019-10-05 13:40 | CM.ED ---
SOCIAL WORK Informant: Dr. Vasquez Reason for Consult: Substance Abuse, Suicidal Ideation triggered in Triage Chief Compliant: Patient requesting detox from heroin and alcohol. Last use of heroin was Saturday morning at 2am, last drink was last night. Living Situation: Home with 24 year old son, Dean Transportation: Patient voices no issues with transportation. Patient states utilizes transportation services through insurance when needed. Mental Health History: Patient reports has never been diagnosed with mental health issues. Patient reports history of anxiety. Patient admits to suicidal ideation at times and states due to feelings of helplessness. Patient denies any current thoughts of self harm, no plan or intent. Substance Abuse History: Patient reports use of heroin off and on for 15+ years. Patient reports current use of heroin and alcohol and was just in detox program 3 weeks ago. Patient states once home relapsed due to feelings of not being helped. Patient reports appointment for seeing a doctor is a month out. Assessment: Patient being admitted to [facility]. Patient states had appointment scheduled with [facility] in [place] (as patient resides in [facility]) after being seen by [facility] upon last admission. Patient states would not be opposed to participating in program through [facility] and reports no issues with transportation. Patient admits to suicidal ideation at times. Patient denies any current suicidal ideation, reports no plan or intent. Patient states just wants help to quit using. Much emotional support and active listening provided throughout. Interventions: -Suicide risk assessment completed. Collaboration with Dr. Vasquez, patient does not require a sitter. Patient voices no current suicidal thoughts, plan or intent to harm self. -Call to at [facility]. Left message updating on patient's admission to [facility]. Plan: Admit to [facility] Jon Eagle, TRAFFIC ENGINEERING TECHNICIAN, GLASS [employer]OL BLANKET MACHINE FEEDER
--- NOTE | 2019-10-05 13:43 | HP.PCM_ITS ---
Problem List (1) Narcotic withdrawal Status: Acute (2) Alcohol withdrawal Status: Acute Qualifiers: Complication of substance-induced condition: with unspecified complication Qualified Code(s): F10.239 - Alcohol dependence with withdrawal, unspecified (3) History of hypertension Status: Chronic (4) Alcoholism /alcohol abuse Status: Chronic (5) Heroin abuse Status: Chronic (6) Seizure disorder Status: Chronic History of Present Illness Date of Admission: 10/05/19 Chief Complaint: Acute EtOH and narcotic withdrawal The patient is a 53 y/o F w/ PMHx: HTN, Tobacco use, Hx Epilepsy, history of spouse's secondary to heroin OD in 06/2019, Hx prior IVDA, EtOH abuse and Heroin usage with history of common intake 3-4 bottles of twisted tea or George daily in addition to 1 g daily of heroin noted to snort only for the last several years, recently discharged on 09/22/2019 following treatment for acute alcohol and narcotic withdrawal with 180 follow-up on 09/28/2019 with clinical improvement symptomatically in addition to Vistaril prescription sent electronically per physician; however, she started both take of EtOH and heroin, snorting, last usage 10/04/19 1/2 bottle rum and last snorted heroin 10/06/19 which she notes is secondary to poor follow-up and significantly distant visits with request for consideration for residential treatment following acute rehab detoxification treatment with significant abdominal discomfort, cramping, body aches, rhinorrhea, fatigue, restlessness, sweating as well as tremors and agitation but no specific tactile disturbances prompting return to the ED. She states that her son with whom she lives does not have any substance abuse problems. Her did have substance abuse problems and as previously noted secondary to overdose in June 2019. She continues to have significant depression and anxiety associated with his . Work-up in the ED included T 96.8, heart rate 95, BP 124/94, respiratory rate 18, 99% on room air, CMP, UDS and alcohol level pending per ED upon requested evaluation of patient. In the ED patient ministered Zofran and oral therapy. Past Medical History Past Medical History (Chronic Problems): Chronic Problems History of hypertension (Chronic) Alcoholism /alcohol abuse (Chronic) Heroin abuse (Chronic) Seizure disorder (Chronic) Allergies tramadol Allergy (Verified 10/05/19 13:03) PT UNSURE OF REACTION seizures Home Medications: Ambulatory Orders Medication Instructions Recorded Gabapentin [Neurontin] 600 mg PO 4X/DAY 09/18/19 traZODone [Desyrel] 100 mg PO QHS 09/18/19 hydrOXYzine pamoate capsule 50 mg PO Q4H PRN PRN #90 cap 09/22/19 [Vistaril pamoate capsule] Surgical History: cholecystectomy, hysterectomy, - - section; 2 back surgeries; Psychiatric History: No pertinent psych hx CIVIL ENGINEER LAND DEVELOPMENT History: No pertinent CIVIL ENGINEER [employer]AND DEVELOPMENT history Lives: With Family - And currently living with her son. Smoking Status: Current every day smoker - Patient with ongoing 1 pack/day cigarette tobacco usage. Tobacco Use: Cigarettes Alcohol: Heavy - Patient drinks significantly including 3-4 alcoholic beverages as well as occasional half bottle George versus rum daily. Drugs: Heroin - Patient currently snorting 1 g heroin daily, previously IV drug abuse but denies for several years., Marijuana - *Family History Maternal History Items: - - Patient notes paternal family history of cancer, specifically leukemia. Paternal History Items: - - She notes paternal family history of cancer, specifically prostate cancer. Review of Systems Constitutional: Reports: Anorexia, Malaise, Weakness, Fatigue. Denies: Chills, Fever, Weight Change HEENT: Reports: Nasal Congestion, Sinus Congestion. Denies: Head Aches, Sinus Drainage Cardiovascular: Denies: Chest Pain, Palpitations Respiratory: Denies: Cough, Shortness of Breath, Shortness of breath at rest, Shortness of breath upon exertion, Sputum production, Wheezing Gastrointestinal: Reports: Abdominal Pain, Nausea. Denies: Diarrhea, Vomiting Genitourinary: Denies: Dysuria Musculoskeletal: Reports: Joint Pain, Muscle pain. Denies: Joint Tenderness Skin: Denies: Rash, Wounds Neurological: Denies: Numbness, Tingling, Focal weakness Psychiatric: Reports: Anxiety, Depression. Denies: Homicidal Ideations, Suicidal Ideations Endocrine: Reports: Heat/ Cold Intolerance Hematologic/ Lymphatic: Denies: Easy Bruising, Easy Bleeding VTE Information - Inpt Only VTE Present on Admission: No VTE Mechan Device Prophylaxis: None VTE Pharm Prophylaxis ordered?: No Reason prophylaxis not ordered:: Treatment Not Indicated Subjective: Patient seated upright in ED bed, tearful, restless, uncomfortable appearing. Objective: Physical Examination: General: awake, alert, oriented x 3 and cooperative, seated upright in the ED bed, fatigued, tearful, agitated, restless. Skin: normal color, turgor, no icterus, cyanosis. HEENT: AT/NC, EOMI, PERRLA, dry MM, no carotid bruits or JVD noted. Lungs: CTA bilaterally, moderate effort, mild decrease BL bases, no rales, ronchi or wheezing. Heart: Mildly tachycardic with regular rhythm; no gallop, rub audible, + SM (chronic). Abdomen: soft, lies discomfort with palpation, ND, hyperactive BS, no HSM. Extremities: no cyanosis, clubbing, or edema. Neurological: patient awake, alert, oriented x 3; cognitive function intact; pupils equally reactive to light and accomodation; cranial nerves II-XII grossly normal, moving all 4 extremities, no focal deficits, strength moderately globally decreased secondary to acute presentation, tremors present. Psychiatric: affect appears fatigued, tearful, restless, no acute evidence of depressive or anxiety feelings. - Physical Exam Vitals/I&O's: Vital Signs Temp Pulse Resp BP Pulse Ox 96.8 F L 95 18 124/94 H 99 10/05/19 13:03 10/05/19 13:03 10/05/19 13:03 10/05/19 13:03 10/05/19 13:03 Oxygen Delivery Method Room Air Weight: 155 lb Body Mass Index (BMI) 25.0 Assessment/Plan All Active Problems Alcohol withdrawal (Acute) Narcotic withdrawal (Acute) The patient is a 53 y/o F w/ PMHx: HTN, Tobacco use, Hx Epilepsy, history of spouse's secondary to heroin OD in 06/2019, Hx prior IVDA, EtOH abuse and Heroin usage, recently d/c 09/22/2019 following treatment for acute alcohol and narcotic withdrawal with 180 follow-up on 09/28/2019 with clinical improvement symptomatically in addition to Vistaril prescription sent electronically per physician; however, she started both take of EtOH and heroin, snorting, last usage 10/04/19 1/2 bottle rum and last snorted heroin 10/06/19 with onset acute withdrawal. 1. Acute EtOH Withdrawal: Will admit to [facility], pending routine labs per ED upon presentation. Although recent admission and discharge, given interest in sobriety, will initiate and continue on protocol with taper course of Phenobarbital, continue home scheduled gabapentin for seizure prophylaxis as noted, as needed Catapres, Bentyl, Vistaril, IV fluids, IV antiemetics, Tylenol as needed for pain. Case management consulted for assistance for next level of care especially given recent discharge. Will need more aggressive 180 follow-up. Best may be residential treatment program. Mag, phos pending. Maintain on CIWA protocol concurrently. 2. Acute Opiate Withdrawal: Routine ED labs pending, will initiate and continue on protocol with tapering course of Subutex, as needed Librium, Sinemet, Catapres, Bentyl, Vistaril, IV fluids, IV antiemetics, Tylenol as needed for pain. Case management consulted for assistance for next level of care especially given recent discharge. Will need more aggressive 180 follow-up. Best may be residential treatment program. 3. Polysubstance Abuse, Hx IVDA: Given history although notes snorting for the last several years she has had a prior history of IV drug abuse, to be cautious will obtain hepatitis panel and HIV testing. Patient currently not candidate for hep C treatment currently as needs to be clean, sober x 6 months, documented attendance NA or AA meetings, counseling and ongoing negative drug screens. Encouraged PCP establishment and follow-up. 4. Seizure Disorder, Epilepsy: Will continue home gabapentin regimen. 5. Tobacco Abuse: Encouraged cessation, inpatient consultation per RT, NR if desired. 6. History of hypertension: Not on regimen, will continue to monitor and if necessary initiate oral regimen, PRN IV hydralazine. 7. DVT prophylaxis: Low risk, encourage ambulation. Inpatient E&M: 77723 Init Hosp L3
[2019-10-05] MEDS: Ondansetron ODT 4 MG Tablet PO (13:50)
--- NOTE | 2019-10-05 14:16 | ED.RN ---
Unable to obtain lab for alcohol level. Lab unable to obtain also. Dr. Rico notified and requests we attempt to obtain it after fluids are given. This nurse will report this to the staff nurse providing care on admission.
[2019-10-05 14:18] VITALS: BP 132/89; PULSE 97; RESP 17; TEMP 36.4; O2SAT 96
[2019-10-05 14:20] LABS: ALB/GLOB Ratio 0.9 RATIO (0.9-2.4); AST(SGOT) 15 U/L (15-37); Alanine Aminotransfer ALT/SGPT 18 U/L (13-56); Albumin, Serum 4.1 g/dL (3.2-5.0); Alkaline Phosphatase 62 U/L (45-117); Anion Gap 3 (5-15); BUN 12 mg/dL (7-18); BUN/Creat Ratio 14.9 RATIO (10-20); Calcium,Total 9.5 mg/dL (8.5-10.1); Chloride 110 mmol/L (98-107); Creatinine, Serum 0.81 mg/dL (0.55-1.02); EST Glomerular Filtration Rate 79 mL/min (>60); Est Glom Filt Rate - Afr Amer 95 mL/min (>60); Estimated Creatinine Clearance 75.19 ml/min; Globulin 4.6 g/dL (2.2-4.2); Glucose 96 mg/dL (74-106); Potassium 4.6 mmol/L (3.5-5.1); Protein, Total 8.7 g/dL (6.4-8.2); Sodium Level 136 mmol/L (136-145)
[2019-10-05 15:46] VITALS: RESP 16
[2019-10-05 16:07] LABS: Amphetamine Urine VISTA NEGATIVE (<1000 ng/mL); Barbiturate Urine VISTA POSITIVE (< 200 ng/mL); Benzodiazepine Urine VISTA NEGATIVE (< 200 ng/mL); Cocaine Urine VISTA NEGATIVE (< 300 ng/mL); Ecstacy Urine VISTA NEGATIVE (< 500 ng/mL); Methadone Urine VISTA NEGATIVE (< 300 ng/mL); PCP Urine VISTA NEGATIVE (< 25 ng/mL); THC Urine VISTA NEGATIVE (< 50 ng/mL); Vista UDS pH Range 6
[2019-10-05 16:15] VITALS: BMI 26.9
[2019-10-05 16:21] VITALS: BMI 26.9
[2019-10-05 16:25] VITALS: BP 130/88; PULSE 86; RESP 18; TEMP 36.8; O2SAT 99
[2019-10-05] MEDS: Phenobarbital 32.4 MG Tablet 64.8 MG PO ×2 (16:48→21:16)
[2019-10-05] MEDS: Lactated Ringers 1,000 ML 125 ML IV (16:48)
[2019-10-05] MEDS: Gabapentin 600 MG Tablet PO ×2 (16:48→21:19)
[2019-10-05 17:04] LABS: Absolute Lymphocyte Count 2.94 X10^3/uL (0.83-4.51); Absolute Neutrophil Count 8.8 X10^3/uL (2.0-7.7); Basophil# 0.07 X10^3/uL; Basophil% 0.6 % (0-1); Eosinophil# 0.06 X10^3/uL; Eosinophils% 0.5 % (0-5); Hematocrit 50.3 % (37-47); Hemoglobin 16.1 g/dL (12.0-15.0); Lymphocyte # 2.94 X10^3/ul (4.0); Lymphocyte % 23.6 % (19-41); Mean Corpuscular Hgb 29.7 pg (27.0-32.0); Mean Corpuscular Volume 92.6 fL (81-99); Mean Platelet Vol. 10.8 fl (6.2-12.0); Monocyte# 0.56 X10^3/uL; Monocyte% 4.5 % (0-10); NRBC Flagged by Analyzer 0 % (0-5); Neutrophil # 8.79 X10^3/uL (2.7-7.7); Neutrophil % 70.4 % (47-70); Platelet Count 258 K/mm3 (150-450); RBC Distribution Width SD 48.5 fl (35.1-43.9); Red Blood Count 5.43 M/mm3 (4.2-5.4); White Blood Count 12.5 K/mm3 (4.4-11.0)
[2019-10-05] MEDS: Buprenorphine HCl 2 MG TAB.SUBL SL (17:21)
[2019-10-05 18:14] LABS: Alcohol, Blood (Medical)-Serum < 3.0 mg/dL
[2019-10-05 19:34] LABS: Magnesium 2.3 mg/dL (1.6-2.6)
[2019-10-05 21:10] VITALS: BP 103/65; PULSE 77; RESP 18; TEMP 36.8; O2SAT 98
[2019-10-05] MEDS: traZODone 50 MG Tablet 100 MG PO (21:19)
[2019-10-05] MEDS: Methocarbamol 750 MG Tablet 1500 MG PO (21:35)
[2019-10-05 23:32] LABS: HIV - WCH Non-Reactive (Nonreactive); Hepatitis B Surface Antibody Reactive; Hepatitis B Surface Antigen Non-Reactive (Nonreactive); Hepatitis C Antibody Non-Reactive (Nonreactive)
[2019-10-06] VITALS (8 sets, daily range): BP systolic 85–114; BP diastolic 44–65; PULSE 60–94; RESP 16–18; TEMP 36.4–36.8; O2SAT 94–98
[2019-10-06] MEDS: Buprenorphine HCl 2 MG TAB.SUBL SL ×3 (00:58→16:24)
[2019-10-06] MEDS: Phenobarbital 32.4 MG Tablet 64.8 MG PO ×6 (00:58→21:29)
[2019-10-06] MEDS: Methocarbamol 750 MG Tablet 1500 MG PO ×2 (04:51→11:01)
--- NOTE | 2019-10-06 07:45 | PCM.PN.HOSP ---
Reason for Visit: Acute opioid and alcohol withdrawal Subjective: Patient is a 53-year-old lady with history of polysubstance use including alcohol and opioid admitted with acute withdrawal from both opioid and alcohol. Patient has been admitted to regular nursing floor for medical stabilization Objective: GENERAL: cooperative HEENT: Atraumatic; EYES; Anicteric, Normal Conjunctiva NECK; supple, normal thyroid, RESPIRATORY: Diminished to auscultation CARDIOVASCULAR: Regular S1 S2, GI: soft, normoactive bowel sounds, : No Renal angle tenderness; EXTREMITIES: No edema, no clubbing, MUSCULOSKELETAL: no muscle waisting NEURO: Awake; no lateralizing signs. SKIN: No Rash PSYCH; Flat affect Vitals/I&O's: Vital Signs Temp Pulse Resp BP Pulse Ox 98.0 F 79 16 89/44 L 96 10/06/19 05:06 10/06/19 05:06 10/06/19 05:06 10/06/19 05:06 10/06/19 05:06 Oxygen Delivery Method Room Air Weight: 75.7 kg Body Mass Index (BMI) 26.9 Intake and Output for Last 24 Hours 10/04/19 10/05/19 10/06/19 23:59 23:59 23:59 Intake Total 1600 / 1600 Balance 1600 / 1600 Laboratory Results 10/05/19 13:40: Sodium 136, Potassium 4.6, Chloride 110 H, Carbon Dioxide 23.0, Anion Gap 3 L, BUN 12, Creatinine 0.81, Estim Creat Clear Calc 75.19, Est GFR (MDRD) Af Amer 95, Est GFR (MDRD) Non-Af 79, BUN/Creatinine Ratio 14.9, Glucose 96, Calcium 9.5, Total Bilirubin 0.60, AST 15, ALT 18, Alkaline Phosphatase 62, Total Protein 8.7 H, Albumin 4.1, Globulin 4.6 H, Albumin/Globulin Ratio 0.9 10/05/19 13:40: WBC 12.5 H, RBC 5.43 H, Hgb 16.1 H, Hct 50.3 H, MCV 92.6, MCH 29.7, MCHC 32.0, RDW Std Deviation 48.5 H, RDW Coeff of Martin 14.0, Plt Count 258, MPV 10.8, Immature Gran % (Auto) 0.400, Neut % (Auto) 70.4 H, Lymph % (Auto) 23.6, [place] % (Auto) 4.5, Eos % (Auto) 0.5, Baso % (Auto) 0.6, Absolute Neuts (auto) 8.8 H, Absolute Lymphs (auto) 2.94, Nucleated RBC % 0 10/05/19 15:24: Urine Opiates Screen NEGATIVE, Urine Methadone Screen NEGATIVE, Ur Barbiturates Screen POSITIVE H, Ur Phencyclidine Scrn NEGATIVE, Ur Amphetamines Screen NEGATIVE, U Methamphetamin-MDMA NEGATIVE, U Benzodiazepines Scrn NEGATIVE, Urine Cocaine Screen NEGATIVE, U Cannabinoids Screen NEGATIVE, Ur Drug Screen Comment 10/05/19 17:06: Ethyl Alcohol < 3.0 10/05/19 17:06: Phosphorus 4.0, Magnesium 2.3 10/05/19 17:06: Hepatitis A IgM Ab Cancelled, Hepatitis A Ab Total Cancelled, Hepatitis A Interp Cancelled, Hep Bs Antigen Cancelled, Hep Bs Ag Confirmation Cancelled, Hep B Surface Ag Comm Cancelled, Hep Bs Antibody Interp Cancelled, Hep B Core Total Ab Cancelled, Hep B Core IgM Ab Cancelled, Hepatitis C Ab Confirm Cancelled, Hep C Confirm Com 1 Cancelled 10/05/19 17:06: Hep Bs Antigen Non-Reactive, Hep Bs Antibody Reactive, Hepatitis C Antibody Non-Reactive, HIV 1&2 Antibody Non-Reactive 10/05/19 17:06: Hepatitis A Ab Total Pending Current Medications Acetaminophen (Tylenol) 500 mg PO Q4H PRN PRN PRN Reason: Temp > 100.4 F Al Hydroxide/Mg Hydroxide (Mylanta Ii) 30 ml PO Q6H PRN PRN PRN Reason: dyspesia Albuterol Sulfate (Ventolin Aerosols) 2.5 mg INHALATION Q2H PRN PRN PRN Reason: Dyspnea, wheezing Bisacodyl (Dulcolax) 10 mg RECTAL DAILY PRN PRN Reason: Constipation Buprenorphine HCl (Buprenorphine Hcl) 4 mg SL Q8H [facility]; Taper Stop: 10/08/19 16:59 Last Admin: 10/06/19 00:58 Dose: 4 mg Documented by: Clonidine (Catapres) 0.1 mg PO Q8H PRN PRN PRN Reason: RESTLESSNESS Dicyclomine HCl (Bentyl) 20 mg PO Q6H PRN PRN PRN Reason: Abdominal Discomfort Folic Acid (Folic Acid) 1 mg PO DAILY@0800 [facility] Gabapentin (Neurontin) 600 mg PO 4X/DAY [facility] Last Admin: 10/05/19 21:19 Dose: 600 mg Documented by: Guaifenesin (Robitussin) 20 ml PO Q4H PRN PRN PRN Reason: COUGH Hydralazine HCl (Apresoline Iv) 10 mg IV Q4H PRN PRN PRN Reason: SBP > 160 Hydroxyzine Pamoate (Vistaril Pamoate Capsule) 50 mg PO Q6H PRN PRN PRN Reason: mild anxiety Ibuprofen (Motrin) 600 mg PO Q8H PRN PRN PRN Reason: Pain Score 1-10/10 Loperamide HCl (Imodium) 2 mg PO Q4H PRN PRN PRN Reason: LOOSE STOOLS Methocarbamol (Methocarbamol) 1,500 mg PO Q6H PRN PRN PRN Reason: MUSCLE SPASM Last Admin: 10/06/19 04:51 Dose: 1,500 mg Documented by: Multivitamins (Multivitamin) [facility] Nicotine (Nicoderm Cq (Pbkc)) 21 mg TRANSDERM. DAILY [facility] Last Admin: 10/05/19 16:48 Dose: 21 mg Documented by: Ondansetron HCl (Zofran) 8 mg PO Q8H PRN PRN PRN Reason: NAUSEA Phenobarbital (Phenobarbital) 97.2 mg PO Q4H [facility]; Taper Stop: 10/10/19 00:59 Last Admin: 10/06/19 04:50 Dose: 97.2 mg Documented by: Senna (Senokot) 2 tablet PO QHS PRN PRN PRN Reason: Constipation Thiamine HCl (Vitamin B1) [facility] Throat Lozenges (Cepacol Sore Throat Lozenge) 1 lozenge MUCOUS MEM Q2H PRN PRN PRN Reason: SORE THROAT Trazodone HCl (Desyrel) 100 mg PO QHS [facility] Last Admin: 10/05/19 21:19 Dose: 100 mg Documented by: STROKE Vital Signs/Narrative: Vital Signs Temp Pulse Resp BP Pulse Ox 10/06/19 05:06 98.0 F 79 16 89/44 L 96 Medical Necessity - Tobacco Use Smoking Status: Current every day smoker Tobacco Use: Cigarettes Assessment/Plan All Active Problems Alcohol withdrawal (Acute) Narcotic withdrawal (Acute) Patient is a 53-year-old lady with history of polysubstance use including alcohol and opioid admitted with acute withdrawal from both opioid and alcohol. Patient has been admitted to regular nursing floor for medical stabilization 1. Acute alcohol withdrawal ?Patient admitted to regular nursing floor currently on phenobarb taper 2. Acute opiate withdrawal -Patient withdrawal being managed with Subutex 3. Seizure disorder ?patient is on gabapentin 4. Tobacco dependence - Counseled on cessation, offered nicotine patch for tobacco cravings 5. Hypertension Pain history currently not on any medication 6. DVT prophylaxis ?Did encourage ambulation Inpatient E&M: 86021 Subs Hosp L2
[2019-10-06] MEDS: Gabapentin 600 MG Tablet PO ×4 (07:47→21:29)
[2019-10-06] MEDS: Folic Acid 1 MG Tablet PO (07:47)
[2019-10-06] MEDS: Thiamine Hydrochloride 100 MG Tablet PO (07:47)
[2019-10-06] MEDS: Multivitamins,Therapeutic Tablet 1 TABLET PO (07:47)
--- NOTE | 2019-10-06 09:03 | CASEMGMT ---
Social Work Note Pt is RAMP pt. SW placed a call to at [facility] and left message that pt will need to be seen. Ester Santiago FIELD TAX AUDITOR, PROJECT DIRECTOR
--- NOTE | 2019-10-06 14:10 | CHAPLAIN ---
Type of Pastoral Visit ___ Initial Visit ___ Follow-up Visit ___ On-call Visit ___ General Patient Visit ___ Spiritual Assessment ___ Family Conference ___ Bereavement ___ Rapid Response ___ Code Blue ___ Other (describe below) Pastoral Care Referral From ___ Patient ___ Family ___ Nurse ___ Physician ___ Vice President Financial ___ Lan/Wan Engineer ___ Other (describe below) Sacrament/Intervention ___ Active listening ___ Anointing ___ Moravian ___ Bereavement ___ Communion ___ Bhakti exploration ___ ___ Life review ___ Prayer ___ Reconciliation ___ Sacrament of Sick ___ Supportive presence ___ Wedding ___ Other (describe below) Pastoral Comments 180 Counselor was doing assessment at time of attempted visit; offer of support given to patient
--- NOTE | 2019-10-06 14:17 | ADDICTION ---
This manager social responsibility met with patient, in her room, to complete MSE, ASAM, AUDIT and DUDIT assessments and to begin processing discharge planning. Patient was alert and orietned x4 and participated actively and appropraitely throughout session. She appears motivated to engage in ongoing treatment and is scheduled with Dr. Ferrell at 2:30pm on October 08 following her discharge from medical withdrawal management at [facility]. She also requsted an appointment with this clinician and will be provided an appointment date and time prior to discharge from [facility]. She meets ASAM criteria for medically managed intensive inpatient services AEB: Dimension1: severe Dimension2: severe
[2019-10-06] MEDS: Mag Hydrox/Al Hydrox/Simeth 30 ML UDC PO ×2 (15:06→21:29)
[2019-10-06] MEDS: traZODone 50 MG Tablet 100 MG PO (21:29)
[2019-10-07] MEDS: Phenobarbital 32.4 MG Tablet 64.8 MG PO ×6 (01:54→21:00)
[2019-10-07] MEDS: Buprenorphine HCl 2 MG TAB.SUBL SL ×3 (01:55→16:35)
[2019-10-07 02:04] VITALS: BP 94/62; PULSE 70; RESP 16; TEMP 36.6; O2SAT 95
[2019-10-07 07:09] VITALS: O2SAT 97
[2019-10-07 09:03] LABS: Hepatitis A AB, Total Negative (Negative)
[2019-10-07] MEDS: Gabapentin 600 MG Tablet PO ×4 (10:26→21:00)
[2019-10-07] MEDS: Multivitamins,Therapeutic Tablet 1 TABLET PO (10:27)
[2019-10-07] MEDS: Folic Acid 1 MG Tablet PO (10:27)
[2019-10-07] MEDS: Thiamine Hydrochloride 100 MG Tablet PO (10:27)
[2019-10-07 10:30] VITALS: BP 93/67; PULSE 74; RESP 16; TEMP 36.4; O2SAT 93
[2019-10-07] MEDS: Methocarbamol 750 MG Tablet 1500 MG PO ×2 (10:34→19:47)
[2019-10-07] MEDS: Ibuprofen 600 MG Tablet PO (10:34)
[2019-10-07] MEDS: Dicyclomine 10 MG Capsule 20 MG PO (10:34)
--- NOTE | 2019-10-07 11:03 | PCM.PN.HOSP ---
Subjective: No issues. Feeling better. Wants to stay clean but needs more support and she knows this. Vitals/I&O's: Vital Signs Temp Pulse Resp BP Pulse Ox 97.9 F 70 16 94/62 97 10/07/19 02:04 10/07/19 02:04 10/07/19 02:04 10/07/19 02:04 10/07/19 07:09 Oxygen Delivery Method Room Air Weight: 75.7 kg Body Mass Index (BMI) 26.9 Intake and Output for Last 24 Hours 10/05/19 10/06/19 10/07/19 23:59 23:59 23:59 Intake Total 2950 / 3400 850 / 850 Balance 2950 / 3400 850 / 850 General: Alert, Oriented x3, Cooperative, No apparent distress, Well developed, Well nourished Lungs: Clear to auscultation, No rhonchi, No wheeze, No rales, Diminished - diffusely Cardiovascular: Regular rate, Regular Rhythm, Normal S1, Normal S2, No murmurs, No Ectopic Activity, No rub noted, No Gallop Abdomen: Bowel Sounds Present, Soft, Non Tender, Non-Distended Extremities: No clubbing, No cyanosis, No edema, Capillary Refill Less than 3 Seconds, Peripheral Pulses Normal Neurological: Cranial nerves II-XII grossly intact, Neuro grossly intact Psych/Mental Status: Normal Affect, Appropriate, - - pleasant, Alert and oriented to time, place, person, mood and affect Laboratory Results 10/05/19 17:06: Hepatitis A Ab Total Negative Current Medications Acetaminophen (Tylenol) 500 mg PO Q4H PRN PRN PRN Reason: Temp > 100.4 F Al Hydroxide/Mg Hydroxide (Mylanta Ii) 30 ml PO Q6H PRN PRN PRN Reason: dyspesia Last Admin: 10/06/19 21:29 Dose: 30 ml Documented by: Albuterol Sulfate (Ventolin Aerosols) 2.5 mg INHALATION Q2H PRN PRN PRN Reason: Dyspnea, wheezing Bisacodyl (Dulcolax) 10 mg RECTAL DAILY PRN PRN Reason: Constipation Buprenorphine HCl (Buprenorphine Hcl) 2 mg SL Q8H [facility]; Taper Stop: 10/08/19 16:59 Last Admin: 10/07/19 10:26 Dose: 2 mg Documented by: Clonidine (Catapres) 0.1 mg PO Q8H PRN PRN PRN Reason: RESTLESSNESS Dicyclomine HCl (Bentyl) 20 mg PO Q6H PRN PRN PRN Reason: Abdominal Discomfort Last Admin: 10/07/19 10:34 Dose: 20 mg Documented by: Folic Acid (Folic Acid) 1 mg PO DAILY@0800 [facility] Last Admin: 10/07/19 10:27 Dose: 1 mg Documented by: Gabapentin (Neurontin) 600 mg PO 4X/DAY [facility] Last Admin: 10/07/19 10:26 Dose: 600 mg Documented by: Guaifenesin (Robitussin) 20 ml PO Q4H PRN PRN PRN Reason: COUGH Hydralazine HCl (Apresoline Iv) 10 mg IV Q4H PRN PRN PRN Reason: SBP > 160 Hydroxyzine Pamoate (Vistaril Pamoate Capsule) 50 mg PO Q6H PRN PRN PRN Reason: mild anxiety Ibuprofen (Motrin) 600 mg PO Q8H PRN PRN PRN Reason: Pain Score 1-10/10 Last Admin: 10/07/19 10:34 Dose: 600 mg Documented by: Loperamide HCl (Imodium) 2 mg PO Q4H PRN PRN PRN Reason: LOOSE STOOLS Methocarbamol (Methocarbamol) 1,500 mg PO Q6H PRN PRN PRN Reason: MUSCLE SPASM Last Admin: 10/07/19 10:34 Dose: 1,500 mg Documented by: Multivit[facility] ([facility]itamin) [facility] Last Admin: 10/07/19 10:27 Dose: 1 tablet Documented by: Nicotine (Nicoderm Cq (Pbkc)) 21 mg TRANSDERM. DAILY [facility] Last Admin: 10/07/19 10:26 Dose: 21 mg Documented by: Ondansetron HCl (Zofran) 8 mg PO Q8H PRN PRN PRN Reason: NAUSEA Phenobarbital (Phenobarbital) 64.8 mg PO Q4H [facility]; Taper Stop: 10/10/19 00:59 Last Admin: 10/07/19 10:27 Dose: 64.8 mg Documented by: Senna (Senokot) 2 tablet PO QHS PRN PRN PRN Reason: Constipation Thiamine HCl (Vitamin B1) [facility] Last Admin: 10/07/19 10:27 Dose: 100 mg Documented by: Throat Lozenges (Cepacol Sore Throat Lozenge) 1 lozenge MUCOUS MEM Q2H PRN PRN PRN Reason: SORE THROAT Trazodone HCl (Desyrel) 100 mg PO QHS [facility] Last Admin: 10/06/19 21:29 Dose: 100 mg Documented by: STROKE Vital Signs/Narrative: Vital Signs Pulse Ox 10/07/19 07:09 97 Medical Necessity - Tobacco Use Smoking Status: Current every day smoker Tobacco Use: Cigarettes Assessment/Plan All Active Problems Alcohol withdrawal (Acute) Narcotic withdrawal (Acute) Acute EtOH Withdrawal -Phenobarb taper with orders et -thiamine and folate -180 at d/c -f/u with Dr. Ferrell tomorrow at 2:30 for Suboxone until she can be seen at 180 Acute Opiate Withdrawal -Subutex taper -f/u at 180 in progress of being arranged Tobacco Dependence -cessation recommended -nicotine patch available H/O seizures -takes gabapentin alone -? EtOH withdrawal related DVT prophylaxis -low risk and ambulating Code Status -Full
--- NOTE | 2019-10-07 12:29 | ADDICTION ---
Patient is scheduled to meet with Dr. Ferrell ([facility]) at 2:30pm on October 08 following her discharge from medical withdrawal management at [facility] and [facility] on 10/15/2019 for treatment planning and ongoing services. She is amiable to this d/c plan.
--- NOTE | 2019-10-07 15:12 | CHAPLAIN ---
Type of Pastoral Visit _x__ Initial Visit ___ Follow-up Visit ___ On-call Visit ___ General Patient Visit ___ Spiritual Assessment ___ Family Conference ___ Bereavement ___ Rapid Response ___ Code Blue ___ Other (describe below) Pastoral Care Referral From _x__ Patient ___ Family ___ Nurse ___ Physician ___ Carver Hand ___ Cattle Rancher ___ Other (describe below) Sacrament/Intervention _x__ Active listening ___ Anointing ___ Taoism ___ Bereavement ___ Communion ___ Bhakti exploration ___ _x__ Life review _x__ Prayer ___ Reconciliation ___ Sacrament of Sick _x__ Supportive presence ___ Wedding ___ Other (describe below) Pastoral Comments patient is expecting to enter treatment/counseling with 180; pt repeatedly says she has got to stop this (use of drugs); pt open to spiritual support
[2019-10-07] MEDS: Mag Hydrox/Al Hydrox/Simeth 30 ML UDC PO (16:35)
[2019-10-07 16:40] VITALS: BP 92/44; PULSE 73; RESP 18; TEMP 36.4; O2SAT 98
[2019-10-07] MEDS: Calcium Carbonate 500 MG Tablet PO (17:17)
[2019-10-07 19:40] VITALS: BP 100/61; PULSE 82; RESP 18; TEMP 36.8; O2SAT 96
[2019-10-07] MEDS: hydrOXYzine PAM 25 MG Capsule 50 MG PO (19:47)
[2019-10-07] MEDS: traZODone 50 MG Tablet 100 MG PO (21:00)
[2019-10-08] MEDS: Phenobarbital 32.4 MG Tablet 64.8 MG PO ×3 (01:06→13:03)
[2019-10-08] MEDS: Methocarbamol 750 MG Tablet 1500 MG PO (05:08)
[2019-10-08] MEDS: cloNIDine HCl 0.1 MG Tablet PO (05:08)
[2019-10-08] MEDS: Buprenorphine HCl 2 MG TAB.SUBL SL (05:08)
[2019-10-08 05:12] VITALS: BP 104/62; PULSE 72; RESP 16; TEMP 36.5; O2SAT 92
[2019-10-08 08:14] VITALS: O2SAT 95
[2019-10-08] MEDS: Thiamine Hydrochloride 100 MG Tablet PO (08:49)
[2019-10-08] MEDS: Gabapentin 600 MG Tablet PO ×2 (08:49→13:03)
[2019-10-08] MEDS: Folic Acid 1 MG Tablet PO (08:49)
[2019-10-08] MEDS: Multivitamins,Therapeutic Tablet 1 TABLET PO (08:49)
[2019-10-08 08:50] VITALS: BP 99/46; PULSE 74; RESP 18; TEMP 36.7; O2SAT 98
--- NOTE | 2019-10-08 08:53 | CASEMGMT ---
Social Work Note SW placed a call to Dr. Ferrell's office and spoke with Maria E. Maria E confirms pt's appointment is today at 2:30pm. Physician updated. Ester Santiago SENIOR BI ARCHITECT, INDUSTRIAL ECOLOGIST
--- NOTE | 2019-10-08 08:58 | DCINST_ITS ---
- Discharge Diagnoses Current Active Problems: Current Active and Chronic Problems Seizure disorder (Chronic) You will use the following diet at home:: No restrictions Your food should be the consistency of: Regular Discharge Activity: Return to Normal Activity Allergies/Adverse Reactions: Allergies tramadol Allergy (Verified 10/05/19 13:03) PT UNSURE OF REACTION seizures Medications to take at Discharge Gabapentin [Neurontin] 600 mg PO 4X/DAY 09/18/19 traZODone [Desyrel] 100 mg PO QHS 09/18/19 hydrOXYzine pamoate capsule [Vistaril pamoate capsule] 50 mg PO Q4H PRN PRN #90 cap 09/22/19 Primary Care Physician: Yuli Cox DO [Primary Care Provider] - Please follow up with your Primary Care Physician in: 1-2 omer Test Results: Test results from this visit will be discussed in further detail at your follow- up appointment, if applicable. Please Follow Up With: Dr. Ferrell When: today at 2:30pm Please Follow Up With: 180 When: as directed
--- NOTE | 2019-10-08 09:02 | PCM.DC.SUM ---
Discharge Date and Diagnosis Date of Admission: 10/05/19 Date of Discharge: 10/08/19 - Secondary Discharge Diagnosis Chronic Problems: Chronic Problems History of hypertension (Chronic) Alcoholism /alcohol abuse (Chronic) Heroin abuse (Chronic) Seizure disorder (Chronic) Hospital Course and Treatment Operations: None Procedures: None Summary of Care Provided: Ms Hobbs is a 53 yo female who is well known to us from previous detox admissions who presented to the ED on 10/05/2019 wanting detox again. She has a PMH of HTN, Tobacco use, Hx Epilepsy and history of spouse's secondary to heroin OD in 06/2019,prior IVDA, EtOH abuse and Heroin usage with history of common intake 3-4 bottles of twisted tea or George daily in addition to 1 g daily of heroin noted to snort only for the last several years. She was recently discharged on 09/22/2019 following treatment for acute alcohol and narcotic withdrawal with 180 follow-up on 09/28/2019 with clinical improvement symptomatically in addition to Vistaril prescription sent electronically per physician; however, she started both take of EtOH and heroin, snorting within 3 days of discharge. Her last usage prior to admission was 10/04/19 of 1/2 bottle rum and last snorted heroin on 10/06/19. She felt that this is secondary to poor follow-up and significantly distant visits. She was treated with Suboxone and Phenobarb tapers and supportive care. She was seen by [facility] and she is to f/u with Dr. Ferrell today at 2:30 for Suboxone until she is able to get an appt at 180 which is in 3 weeks. She feels that this is a regimen she can adhere to and is anxious to get started. Subjective: Feeling ok today. Appt today at 2:30 and pt is able to reiterate this. - Physical Exam Vitals/I&O's: Vital Signs Temp Pulse Resp BP Pulse Ox 97.7 F L 72 16 104/62 95 10/08/19 05:12 10/08/19 05:12 10/08/19 05:12 10/08/19 05:12 10/08/19 08:14 Oxygen Delivery Method Room Air Weight: 75.7 kg Body Mass Index (BMI) 26.9 Intake and Output for Last 24 Hours 10/06/19 10/07/19 10/08/19 23:59 23:59 23:59 Intake Total 2950 / 3400 1580 / 1580 250 / 250 Balance 2950 / 3400 1580 / 1580 250 / 250 General: Alert, Oriented x3, Cooperative, No apparent distress, Well developed, Well nourished Oral: Moist Mucosa, No Gingival or Mucosal Lesions/ Ulcerations Lungs: Clear to auscultation, No rhonchi, No wheeze, No rales, Diminished - mild and diffuse Cardiovascular: Regular rate, Regular Rhythm, Normal S1, Normal S2, No murmurs, No Ectopic Activity, No Gallop Abdomen: Bowel Sounds Present, Soft, Non Tender, Non-Distended, No Hepato-splenomegaly Extremities: No clubbing, No cyanosis, No edema, Capillary Refill Less than 3 Seconds, Peripheral Pulses Normal Skin: No rashes, No breakdown Musculoskeletal: No Tenderness to Palpation of Joints or Extremities Neurological: Cranial nerves II-XII grossly intact, Neuro grossly intact Psych/Mental Status: Normal Affect, Appropriate, Alert and oriented to time, place, person, mood and affect Laboratory Results 10/05/19 17:06: Hepatitis A Ab Total Negative Current Medications Acetaminophen (Tylenol) 500 mg PO Q4H PRN PRN PRN Reason: Temp > 100.4 F Al Hydroxide/Mg Hydroxide (Mylanta Ii) 30 ml PO Q6H PRN PRN PRN Reason: dyspesia Last Admin: 10/07/19 16:35 Dose: 30 ml Documented by: Albuterol Sulfate (Ventolin Aerosols) 2.5 mg INHALATION Q2H PRN PRN PRN Reason: Dyspnea, wheezing Bisacodyl (Dulcolax) 10 mg RECTAL DAILY PRN PRN Reason: Constipation Buprenorphine HCl (Buprenorphine Hcl) 2 mg SL Q12H LAITH; Taper Stop: 10/08/19 16:59 Last Admin: 10/08/19 05:08 Dose: 2 mg Documented by: Calcium Carbonate (Tums) 500 mg PO Q6H PRN PRN PRN Reason: heart burn Last Admin: 10/07/19 17:17 Dose: 500 mg Documented by: Clonidine (Catapres) 0.1 mg PO Q8H PRN PRN PRN Reason: RESTLESSNESS Last Admin: 10/08/19 05:08 Dose: 0.1 mg Documented by: Dicyclomine HCl (Bentyl) 20 mg PO Q6H PRN PRN PRN Reason: Abdominal Discomfort Last Admin: 10/07/19 10:34 Dose: 20 mg Documented by: Folic Acid (Folic Acid) 1 mg PO DAILY@0800 [facility] Last Admin: 10/08/19 08:49 Dose: 1 mg Documented by: Gabapentin (Neurontin) 600 mg PO 4X/DAY [facility] Last Admin: 10/08/19 08:49 Dose: 600 mg Documented by: Guaifenesin (Robitussin) 20 ml PO Q4H PRN PRN PRN Reason: COUGH Hydralazine HCl (Apresoline Iv) 10 mg IV Q4H PRN PRN PRN Reason: SBP > 160 Hydroxyzine Pamoate (Vistaril Pamoate Capsule) 50 mg PO Q6H PRN PRN PRN Reason: mild anxiety Last Admin: 10/07/19 19:47 Dose: 50 mg Documented by: Ibuprofen (Motrin) 600 mg PO Q8H PRN PRN PRN Reason: Pain Score 1-10/10 Last Admin: 10/07/19 10:34 Dose: 600 mg Documented by: Loperamide HCl (Imodium) 2 mg PO Q4H PRN PRN PRN Reason: LOOSE STOOLS Methocarbamol (Methocarbamol) 1,500 mg PO Q6H PRN PRN PRN Reason: MUSCLE SPASM Last Admin: 10/08/19 05:08 Dose: 1,500 mg Documented by: [facility]itamin) [facility] Last Admin: 10/08/19 08:49 Dose: 1 tablet Documented by: Nicotine (Nicoderm Cq (Pbkc)) 21 mg TRANSDERM. DAILY [facility] Last Admin: 10/08/19 08:49 Dose: 21 mg Documented by: Ondansetron HCl (Zofran) 8 mg PO Q8H PRN PRN PRN Reason: NAUSEA Phenobarbital (Phenobarbital) 64.8 mg PO Q6H [facility]; Taper Stop: 10/10/19 00:59 Last Admin: 10/08/19 06:37 Dose: 64.8 mg Documented by: Senna (Senokot) 2 tablet PO QHS PRN PRN PRN Reason: Constipation Thiamine HCl ([facility]itamin B1) [facility] Last Admin: 10/08/19 08:49 Dose: 100 mg Documented by: Throat Lozenges (Cepacol Sore Throat Lozenge) 1 lozenge MUCOUS MEM Q2H PRN PRN PRN Reason: SORE THROAT Trazodone HCl (Desyrel) 100 mg PO QHS LAITH Last Admin: 10/07/19 21:00 Dose: 100 mg Documented by: Discharge Activity: Return to Normal Activity Home Medications: Medications to take at Discharge Gabapentin [Neurontin] 600 mg PO 4X/DAY 09/18/19 traZODone [Desyrel] 100 mg PO QHS 09/18/19 hydrOXYzine pamoate capsule [Vistaril pamoate capsule] 50 mg PO Q4H PRN PRN #90 cap 09/22/19 Primary Care Physician: Yuli Cox DO [Primary Care Provider] - Please follow up with your Primary Care Physician in: 1-2 weels Please Follow Up With: Dr. Ferrell When: today at 2:30pm Please Follow Up With: 180 When: as directed Medical Necessity - Tobacco Use Smoking Status: Current every day smoker Tobacco Use: Cigarettes Meaningful Use Info Meaningful Use Diagnoses (Choose all that apply): None applicable
--- NOTE | 2019-10-08 10:24 | PHA.DC.MR ---
Pharmacy Service has performed discharge medication reconciliation for this patient. The patient's discharge medication list was reviewed for discrepancies and discrepancies were resolved. Home Medications Gabapentin [Neurontin] 600 mg PO 4X/DAY 09/18/19 traZODone [Desyrel] 100 mg PO QHS 09/18/19 hydrOXYzine pamoate capsule [Vistaril pamoate capsule] 50 mg PO Q4H PRN PRN #90 cap 09/22/19
--- NOTE | 2019-10-08 17:14 | PCA ---
CALLED TO CLARIFY THAT [facility] APPOINTMENT WAS SCEDULED
== END 2019-10-08 13:34 | disposition home or self-care (01) | DRG 773 ==
LOC: ED 13:56 → MS3 14:07
PROVIDERS: Admitting Provider Family Medicine; Emergency Provider Emergency Medicine; PCP Family Medicine; Visit Provider Internal Medicine
DX: F10.239 Alcohol dependence with withdrawal, unspecified (principal); F17.210 Nicotine dependence, cigarettes, uncomplicated; F11.23 Opioid dependence with withdrawal; G40.909 Epilepsy, unspecified, not intractable, without status epilepticus; I10 Essential (primary) hypertension; Z79.899 Other long term (current) drug therapy
CPT/HCPCS: 36415; 80053; 80307; 80320; 83735; 84100; 85025; 86703; 86706; 86708; 86803; 87340; 99251; 99285; J7030; J7120; G0463; G0480

== ENCOUNTER → 2019-11-05 | Outpatient (CLI) | payer MEDICAID, SELFPAY ==
[2019-11-05 11:43] LABS: Amphetamine Urine VISTA NEGATIVE (<1000 ng/mL); Barbiturate Urine VISTA NEGATIVE (< 200 ng/mL); Benzodiazepine Urine VISTA NEGATIVE (< 200 ng/mL); Cocaine Urine VISTA NEGATIVE (< 300 ng/mL); Ecstacy Urine VISTA POSITIVE (< 500 ng/mL); Methadone Urine VISTA NEGATIVE (< 300 ng/mL); PCP Urine VISTA NEGATIVE (< 25 ng/mL); THC Urine VISTA NEGATIVE (< 50 ng/mL); Vista UDS pH Range 5
== END | disposition home or self-care (01) ==
LOC: LAB 11:14
PROVIDERS: PCP Family Medicine; Referring Provider Anesthesiology Pain Medicine; Visit Provider Anesthesiology Pain Medicine
DX: F11.20 Opioid dependence, uncomplicated (principal)
CPT/HCPCS: 80307

== ENCOUNTER 2021-06-25 11:34 | Inpatient (IN) | payer MEDICAID, SELFPAY ==
[2021-06-25] VITALS (12 sets, daily range): BP systolic 112–176; BP diastolic 57–101; PULSE 91–110; RESP 14–26; TEMP 36.5–37.3; O2SAT 87–98; BMI 25.8
--- NOTE | 2021-06-25 11:47 | RAD_ITS ---
STUDY: X-RAY CHEST REASON FOR EXAM: Female, 55 years old. Cough TECHNIQUE: Single AP portable view of the chest. COMPARISON: None. FINDINGS: Patchy alveolar opacities in both lung bases consistent with bibasilar pneumonia. There is no demonstrated pleural abnormality. Normal size heart. Normal mediastinum and lara. Normal visualized pulmonary arteries. Normal visualized aortic arch and descending thoracic aorta. Normal visualized thoracic spine. Normal visualized ribs, clavicles, and shoulders. There is no demonstrated abnormality of the visualized soft tissue structures of the upper abdomen. RAD/Chest 1 View (Portable) IMPRESSION: Bibasilar pneumonia. CT may be useful. Electronically Signed: Raymond Mitchell MD at 12:46 EDT ,
--- NOTE | 2021-06-25 11:47 | EKG12_ITS ---
Test Reason : SOB Blood Pressure : / mmHG Vent. Rate : 095 BPM Atrial Rate : 095 BPM P-R Int : 140 ms QRS Dur : 084 ms QT Int : 366 ms P-R-T Axes : 082 073 062 degrees QTc Int : 459 ms Normal sinus rhythm Right atrial enlargement Nonspecific ST abnormality Abnormal ECG Confirmed by RANDEE MCLEAN, CHUN ([id number]), editor news VINEET SMITH ([id number]) on 06/26/2021 1:58:55 PM Referred By: AMALIA Confirmed By:CHUN JEFF MD
--- NOTE | 2021-06-25 11:53 | EX.ED.DYSGE1 ---
HPI History of Present Illness Chief Complaint: Shortness of Breath Narrative Narrative: Cough shortness of breath requesting heroin detox. The patient indicates she has had cough and shortness of breath for a number of days she was seen yesterday at an outside hospital facility where she indicates she was told she had double pneumonia and required admission she declined to be admitted there as she wants to be admitted to this facility apparently that could not be arranged so it sounds like she left AMA and she presents today with persistent cough shortness of breath. She has a history of heroin abuse via snorting she does not inject IV. She has been on oral detox medication of unspecified type through. 180 she stopped that medication about a month ago and began snorting heroin and she wants to be evaluated for heroin detox as well. She has no history of AL PE or DVT she indicates she has not COVID vaccinated that she was tested for COVID and influenza at the outside hospital facility and reports she was tested negative for these viruses. She is eating and drinking well, [facility] Medical History (Updated 06/25/21 @ 14:[address] Esau Good MD) Drug abuse Home Medications gabapentin 600 mg PO 4X/DAY 09/18/19 [History Last Taken 09/15/19] trazodone 100 mg PO QHS 09/18/19 [History Last Taken 09/15/19] hydroxyzine pamoate 50 mg PO Q4H PRN PRN #90 cap 09/22/19 [Rx Last Taken Unknown] Allergy/AdvReac Type Severity Reaction Status Date / Time tramadol Allergy PT UNSURE Verified 06/25/21 11:36 OF REACTION Social History Smoking Status: Current every day smoker tobacco type: cigarettes ROS ROS ED Constitutional Constitutional ED: Reports subjective, sweats and other; Denies chills, fever(s) or weight loss Eyes Eyes: Denies blurry vision or change in vision ENT ENT ED: Denies ear pain Cardiovascular Cardiovascular: Denies chest pain or palpitations Respiratory/Chest Respiratory/Chest: Reports cough and dyspnea Gastrointestinal Gastrointestinal: Denies abdominal pain, nausea or vomiting Genitourinary Genitourinary ED: Denies dysuria or hematuria Musculoskeletal Musculoskeletal: Denies arthralgias or myalgias Integumentary Reports rash; Denies abscess Neurologic Neurologic: Denies weakness Psychiatric Psychiatric: Denies anxiety or depression Endocrine Endocrinology: Denies polydipsia or polyuria Allergic/Immunologic Allergic/Immunologic ED: Denies urticaria EXAM Physical Exam Const Vital Signs: 06/25/21 11:34 06/25/21 12:00 06/25/21 12:01 Temperature 97.7 F L Temperature Source Temporal Pulse Rate 99 97 Respiratory Rate 25 H 17 Respiratory Effort Short of Breath Respiratory Depth Normal Respiratory Pattern Normal Blood Pressure 176/101 H 129/83 H Blood Pressure Mean 126 98 Pulse Ox 87 92 Oxygen Delivery Method Room Air Oxygen Flow Rate (L/min) 2 06/25/21 13:45 06/25/21 14:13 06/25/21 14:36 Temperature 99.2 F H Temperature Source Temporal Pulse Rate 94 92 91 Respiratory Rate 14 21 H 19 H Respiratory Effort Respiratory Depth Respiratory Pattern Blood Pressure 112/94 H 121/76 H Blood Pressure Mean 100 91 Pulse Ox 91 92 Oxygen Delivery Method Nasal Cannula Room Air Oxygen Flow Rate (L/min) 2 06/25/21 14:45 Temperature Temperature Source Pulse Rate Respiratory Rate Respiratory Effort Respiratory Depth Respiratory Pattern Blood Pressure Blood Pressure Mean Pulse Ox Oxygen Delivery Method Nasal Cannula Oxygen Flow Rate (L/min) 2 Positive well developed General Appearance ED: well developed HEENT Reports normocephalic Negative for trauma Eyes EOMs intact bilaterally Neck supple Chest Wall inspection of chest normal Resp Auscultation: wheezes and diminished lung sounds Cardio regular rate GI non-tender and non-distended Back/Spine no CVA tenderness Back/Spine Narrative: unremarkable Extremity normal to inspection Neuro oriented x3 and CN's II-XII intact bilaterally Sensorium / Orientation: alert Psych mental status grossly normal Skin no rashes or lesions noted MDM MDM MDM Narrative Medical decision making narrative: Patient's vital signs are unremarkable she is afebrile her pulse ox is 87% she has audible wheezing no respiratory failure at this time we need to confirm her COVID influenza status she will begin pulmonary toilet, medications, IV fluids. In ED management screening, she is not known to require oxygen Please note she did last snort heroin I believe sometime this morning ED screening evaluation shows white count of about 13,000, 1 view chest x-ray to my review shows signs of infiltrate radiology reports bibasal infiltrate, all other labs generally unremarkable, eventually the facility where she was seen yesterday did send this outpatient labs, that showed she had a CTA that showed no signs of obvious PE and bibasilar infiltrates, she had COVID-negative flu negative respiratory swabs She is been treated IV antibiotics aerosols given her cough hypoxemia all of the above spoke with the hospitalist will arrange for admission Admit stable Final impression bibasilar pneumonia History of heroin abuse by snorting Lab Data Labs: Laboratory Results - last 24 hr 06/25/21 06/25/21 06/25/21 13:24 13:24 13:24 WBC Cancelled Corrected WBC Cancelled RBC Cancelled Hgb Cancelled Hct Cancelled MCV Cancelled MCH Cancelled MCHC Cancelled RDW Std Deviation Cancelled RDW Coeff of Martin Cancelled Plt Count Cancelled MPV Cancelled Immature Gran % (Auto) Cancelled Neut % (Auto) Cancelled Lymph % (Auto) Cancelled Mccreary % (Auto) Cancelled Eos % (Auto) Cancelled Baso % (Auto) Cancelled Absolute Neuts (auto) Cancelled Absolute Lymphs (auto) Cancelled Total Counted Cancelled Neutrophils % (Manual) Cancelled Band Neutrophils % Cancelled Lymphocytes % (Manual) Cancelled Monocytes % (Manual) Cancelled Eosinophils % (Manual) Cancelled Basophils % (Manual) Cancelled Metamyelocytes % Cancelled Myelocytes % Cancelled Promyelocytes % Cancelled Blast Cells % Cancelled Plasma Cell % (Manual) Cancelled Other Cells % Cancelled Nucleated RBC % Cancelled Nucleated RBCs/100 WBC Cancelled Differential Comment Cancelled Diff Path Review Cancelled Hypersegmented Neuts Cancelled Atypical Lymphocytes Cancelled Reactive Lymphocytes Cancelled Smudge Cells Cancelled Toxic Granulation Cancelled Toxic Vacuolation Cancelled Dohle Bodies Cancelled Shantal Rods Cancelled Platelet Estimate Cancelled Plt Morphology Comment Cancelled RBC Morphology Cancelled Polychromasia Cancelled Hypochromasia Cancelled Poikilocytosis Cancelled Basophilic Stippling Cancelled Anisocytosis Cancelled Microcytosis Cancelled Macrocytosis Cancelled Spherocytes Cancelled Sickle Cells Cancelled Target Cells Cancelled Tear Drop Cells Cancelled Ovalocytes Cancelled Stomatocytes Cancelled [place] Bodies Cancelled [place] Cells Cancelled Bite Cells Cancelled Crenated Cell Cancelled Acanthocytes (Spur) Cancelled Rouleaux Cancelled Schistocytes Cancelled Sodium Cancelled Potassium Cancelled Chloride Cancelled Carbon Dioxide Cancelled Anion Gap Cancelled BUN Cancelled Creatinine Cancelled Estim Creat Clear Calc Cancelled Est GFR (MDRD) Af Amer Cancelled Est GFR (MDRD) Non-Af Cancelled BUN/Creatinine Ratio Cancelled Glucose Cancelled Calcium Cancelled Troponin I High Sens Cancelled B-Natriuretic Peptide Cancelled 06/25/21 06/25/21 06/25/21 14:10 14:10 14:10 WBC 11.6 H Corrected WBC RBC 4.91 Hgb 14.0 Hct 43.5 MCV 88.6 MCH 28.5 MCHC 32.2 RDW Std Deviation 39.8 RDW Coeff of Martin 12.2 Plt Count 238 MPV 10.3 Immature Gran % (Auto) 0.700 Neut % (Auto) 85.8 H Lymph % (Auto) 9.0 L Mccreary % (Auto) 4.3 Eos % (Auto) 0.0 Baso % (Auto) 0.2 Absolute Neuts (auto) 9.9 H Absolute Lymphs (auto) 1.04 Total Counted Neutrophils % (Manual) Band Neutrophils % Lymphocytes % (Manual) Monocytes % (Manual) Eosinophils % (Manual) Basophils % (Manual) Metamyelocytes % Myelocytes % Promyelocytes % Blast Cells % Plasma Cell % (Manual) Other Cells % Nucleated RBC % 0 Nucleated RBCs/100 WBC Differential Comment Diff Path Review Hypersegmented Neuts Atypical Lymphocytes Reactive Lymphocytes Smudge Cells Toxic Granulation Toxic Vacuolation Dohle Bodies Shantal Rods Platelet Estimate Plt Morphology Comment RBC Morphology Polychromasia Hypochromasia Poikilocytosis Basophilic Stippling Anisocytosis Microcytosis Macrocytosis Spherocytes Sickle Cells Target Cells Tear Drop Cells Ovalocytes Stomatocytes [place] Bodies [place] Cells Bite Cells Crenated Cell Acanthocytes (Spur) Rouleaux Schistocytes Sodium 140 Potassium 3.5 Chloride 106 Carbon Dioxide 28.0 Anion Gap 6 BUN 6 L Creatinine 0.47 L Estim Creat Clear Calc 131.52 Est GFR (MDRD) Af Amer 177 Est GFR (MDRD) Non-Af 146 BUN/Creatinine Ratio 12.8 Glucose 109 H Calcium 8.7 Troponin I High Sens 3 B-Natriuretic Peptide 18.5 Radiography Diagnostic Testing: Clinical Impression(s) from Imaging Studies Chest X-Ray 06/25/21 11:47 IMPRESSION: Bibasilar pneumonia. CT may be useful. Electronically Signed: Raymond Mitchell MD at 12:46 EDT , Discharge Plan Triage Chief Complaint: Shortness of Breath ED Provider: Esau Good Dx/Rx/DC Orders Clinical Impression: Heroin abuse, Pneumonia Prescriptions: No Action trazodone 50 MG tablet 100 mg PO QHS RF: 0 gabapentin 800 MG tablet 600 mg PO 4X/DAY RF: 0 hydroxyzine pamoate 25 MG capsule 50 mg PO Q4H PRN PRN (Reason: mild anxiety) Qty: 90 RF: 0 Primary Care Provider: Denae Mendez Referrals: Denae Mendez DO [Primary Care Provider] -
[2021-06-25] MEDS: 0.9% Normal Saline 1,000 ML 150 ML IV (14:10)
[2021-06-25 14:15] LABS: Absolute Lymphocyte Count 1.04 X10^3/uL (0.83-4.51); Absolute Neutrophil Count 9.9 X10^3/uL (2.0-7.7); Basophil# 0.02 X10^3/uL; Basophil% 0.2 % (0-1); Hematocrit 43.5 % (37-47); Lymphocyte # 1.04 X10^3/ul (0.83-4.51); Mean Corp Hgb Conc 32.2 g/dL (32-36); Mean Corpuscular Hgb 28.5 pg (27.0-32.0); Mean Corpuscular Volume 88.6 fL (81-99); Mean Platelet Vol. 10.3 fl (6.2-12.0); Monocyte% 4.3 % (0-10); NRBC Flagged by Analyzer 0 % (0-5); Neutrophil # 9.91 X10^3/uL (2.7-7.7); Neutrophil % 85.8 % (47-70); Platelet Count 238 K/mm3 (150-450); RBC Distribution Width CV 12.2 % (11.6-14.6); RBC Distribution Width SD 39.8 fl (35.1-43.9); Red Blood Count 4.91 M/mm3 (4.2-5.4); White Blood Count 11.6 K/mm3 (4.4-11.0)
[2021-06-25 14:32] LABS: BNP,B-Type NATRIURETIC PEPTIDE 18.5 pg/mL (0-100)
[2021-06-25] MEDS: Ipratropium/Albuterol Sulfate 3 ML AMPUL.NEB INHALATION ×2 (14:33→20:08)
[2021-06-25] MEDS: Ceftriaxone 1 GM/50 ML BAG IV (14:38)
[2021-06-25 14:40] LABS: Anion Gap 6 (5-15); BUN 6 mg/dL (7-18); BUN/Creat Ratio 12.8 RATIO (10-20); Calcium,Total 8.7 mg/dL (8.5-10.1); Chloride 106 mmol/L (98-107); Creatinine, Serum 0.47 mg/dL (0.55-1.02); EST Glomerular Filtration Rate 146 mL/min (>60); Est Glom Filt Rate - Afr Amer 177 mL/min (>60); Estimated Creatinine Clearance 131.52 ml/min; Glucose 109 mg/dL (74-106); Potassium 3.5 mmol/L (3.5-5.1); Sodium Level 140 mmol/L (136-145); Troponin-I HS 3 pg/mL (3.0-54.0)
--- NOTE | 2021-06-25 14:54 | PCM.HP.STD ---
HPI - General General Date of Admission: 06/25/21 Date of Service: 06/25/21 Chief Complaint: Shortness of breath, request for medical stabilization from opioid withdrawal HPI Narrative NAYE BROWN, is a 55 F who presents with the above. Patient's history of depression, nicotine dependence, cellulitis of the patient was recently diagnosed with pneumonia seen on CTA of the chest in [facility] a day prior to admission. Her COVID test was negative. Flu and rapid strep were also negative. Patient signed out AGAINST MEDICAL ADVICE because she wanted also opioid withdrawal treatment and preferred being admitted in with a [facility]. She uses about 1 g of heroin/fentanyl a day. Her last use was 2 AM on the day of admission. She comes in with worsening shortness of breath, cough, productive of whitish sputum. Admits to fever and chills. She also has hot and cold flashes, cramps in her legs, feels shaky. She denied any diarrhea or nausea or vomiting. In the emergency room, her blood pressure was 176/101, heart rate 99, respiratory 25, temperature 97.7, oxygen saturation was 87% on room air, improved to 94% on 2 L of oxygen. Her WBC count 11.6, hemoglobin 14.0, platelet count 238. CMP was unremarkable PFSH Medical History (Updated 06/25/21 @ 15:[address] Shellie Hilliard MD) Depression Drug abuse Heroin abuse Seizure disorder Temporomandibular joint disorder (TMJ) Home Medications gabapentin 600 mg PO 4X/DAY 09/18/19 [History Last Taken 09/15/19] trazodone 100 mg PO QHS 09/18/19 [History Last Taken 09/15/19] hydroxyzine pamoate 50 mg PO Q4H PRN PRN #90 cap 09/22/19 [Rx Last Taken Unknown] Allergy/AdvReac Type Severity Reaction Status Date / Time tramadol Allergy PT UNSURE Verified 06/25/21 11:36 OF REACTION Family History (Updated 06/25/21 @ 15:[address] Shellie Hilliard MD) Mother Cancer leukemia Father Cancer CAD (coronary artery disease) Heart disease Surgical History (Updated 06/25/21 @ 15:[address] Shellie Hilliard MD) H/O lumbosacral spine surgery H/O: hysterectomy History of tonsillectomy History of tubal ligation Hx of cholecystectomy Previous section Social History (Updated 06/25/21 @ 15:[address] Shellie Hilliard MD) household members: none Smoking Status: Current every day smoker tobacco type: cigarettes substance use type: heroin ROS ROS Narrative Constitutional: Reports: Malaise, Weakness, Fatigue, fever, chills. Denies: Anorexia, Night Sweats, Weight Change Eyes: Denies: Blurred vision, Cataracts, Conjunctivae Inflammation, Pain, Redness, Vision Change HEENT: Denies: Difficulty Hearing, Difficulty Swallowing, Head Aches, Hearing Changes, Sinus Congestion, Sinus Drainage Cardiovascular: Denies: Chest Pain, Orthopnea, Palpitations Respiratory: Denies: Cough, Shortness of breath at rest, Sputum production Gastrointestinal: Denies: Abdominal Pain, Nausea, Vomiting Genitourinary: Denies: Dysuria Musculoskeletal: Denies: Joint Pain, Joint stiffness, Joint swelling, Joint Tenderness Skin: Denies: Rash, Wounds Neurological: Denies: Numbness, Tingling, Focal weakness Vital Signs Vital Signs Vital Signs: 06/25/21 11:34 06/25/21 12:00 06/25/21 12:01 Temperature 97.7 F L Temperature Source Temporal Pulse Rate 99 97 Respiratory Rate 25 H 17 Respiratory Effort Short of Breath Respiratory Depth Normal Respiratory Pattern Normal Blood Pressure 176/101 H 129/83 H Blood Pressure Mean 126 98 Pulse Ox 87 92 Oxygen Delivery Method Room Air Oxygen Flow Rate (L/min) 2 06/25/21 13:45 06/25/21 14:13 06/25/21 14:36 Temperature 99.2 F H Temperature Source Temporal Pulse Rate 94 92 91 Respiratory Rate 14 21 H 19 H Respiratory Effort Respiratory Depth Respiratory Pattern Blood Pressure 112/94 H 121/76 H Blood Pressure Mean 100 91 Pulse Ox 91 92 Oxygen Delivery Method Nasal Cannula Room Air Oxygen Flow Rate (L/min) 2 06/25/21 14:45 Temperature 98.3 F Temperature Source Oral Pulse Rate 95 Respiratory Rate 16 Respiratory Effort Respiratory Depth Respiratory Pattern Blood Pressure 126/68 H Blood Pressure Mean 87 Pulse Ox 98 Oxygen Delivery Method Nasal Cannula Oxygen Flow Rate (L/min) 2 Weight Weight: 74.843 kg Body Mass Index (BMI) 25.8 Physical Exam Narrative Physical exam: General: Alert, Oriented x3, Cooperative, mild respiratory distress with use of accessory muscles of respiration HEENT: Atraumatic Oral: Moist Mucosa Neck: Supple Lungs: Diminished to auscultation, wheezes++ Cardiovascular: HS I+II, regular, no murmurs Abdomen: Bowel Sounds Present, Soft, Non Tender Extremities: No edema Skin: No rashes, No breakdown Neurological: Grossly intact Psych/Mental Status: Appropriate Results Lab / Micro Data Result Diagrams: 06/25/21 14:10 06/25/21 14:10 Labs: Laboratory Results - last 24 hr 06/25/21 13:24: WBC Cancelled, Corrected WBC Cancelled, RBC Cancelled, Hgb Cancelled, Hct Cancelled, MCV Cancelled, MCH Cancelled, MCHC Cancelled, RDW Std Deviation Cancelled, RDW Coeff of Martin Cancelled, Plt Count Cancelled, MPV Cancelled, Immature Gran % (Auto) Cancelled, Neut % (Auto) Cancelled, Lymph % (Auto) Cancelled, Daniels % (Auto) Cancelled, Eos % (Auto) Cancelled, Baso % (Auto) Cancelled, Absolute Neuts (auto) Cancelled, Absolute Lymphs (auto) Cancelled, Total Counted Cancelled, Neutrophils % (Manual) Cancelled, Band Neutrophils % Cancelled, Lymphocytes % (Manual) Cancelled, Monocytes % (Manual) Cancelled, Eosinophils % (Manual) Cancelled, Basophils % (Manual) Cancelled, Metamyelocytes % Cancelled, Myelocytes % Cancelled, Promyelocytes % Cancelled, Blast Cells % Cancelled, Plasma Cell % (Manual) Cancelled, Other Cells % Cancelled, Nucleated RBC % Cancelled, Nucleated RBCs/100 WBC Cancelled, Differential Comment Cancelled, Diff Path Review Cancelled, Hypersegmented Neuts Cancelled, Atypical Lymphocytes Cancelled, Reactive Lymphocytes Cancelled, Smudge Cells Cancelled, Toxic Granulation Cancelled, Toxic Vacuolation Cancelled, Dohle Bodies Cancelled, Shantal Rods Cancelled, Platelet Estimate Cancelled, Plt Morphology Comment Cancelled, RBC Morphology Cancelled, Polychromasia Cancelled, Hypochromasia Cancelled, Poikilocytosis Cancelled, Basophilic Stippling Cancelled, Anisocytosis Cancelled, Microcytosis Cancelled, Macrocytosis Cancelled, Spherocytes Cancelled, Sickle Cells Cancelled, Target Cells Cancelled, Tear Drop Cells Cancelled, Ovalocytes Cancelled, Stomatocytes Cancelled, [place] Bodies Cancelled, [place] Cells Cancelled, Bite Cells Cancelled, Crenated Cell Cancelled, Acanthocytes (Spur) Cancelled, Rouleaux Cancelled, Schistocytes Cancelled 06/25/21 13:24: Sodium Cancelled, Potassium Cancelled, Chloride Cancelled, Carbon Dioxide Cancelled, Anion Gap Cancelled, BUN Cancelled, Creatinine Cancelled, Estim Creat Clear Calc Cancelled, Est GFR (MDRD) Af Amer Cancelled, Est GFR (MDRD) Non-Af Cancelled, BUN/Creatinine Ratio Cancelled, Glucose Cancelled, Calcium Cancelled, Troponin I High Sens Cancelled 06/25/21 13:24: B-Natriuretic Peptide Cancelled 06/25/21 14:10: Sodium 140, Potassium 3.5, Chloride 106, Carbon Dioxide 28.0, Anion Gap 6, BUN 6 L, Creatinine 0.47 L, Estim Creat Clear Calc 131.52, Est GFR (MDRD) Af Amer 177, Est GFR (MDRD) Non-Af 146, BUN/Creatinine Ratio 12.8, Glucose 109 H, Calcium 8.7, Troponin I High Sens 3 06/25/21 14:10: WBC 11.6 H, RBC 4.91, Hgb 14.0, Hct 43.5, MCV 88.6, MCH 28.5, MCHC 32.2, RDW Std Deviation 39.8, RDW Coeff of Martin 12.2, Plt Count 238, MPV 10.3, Immature Gran % (Auto) 0.700, Neut % (Auto) 85.8 H, Lymph % (Auto) 9.0 L, Daniels % (Auto) 4.3, Eos % (Auto) 0.0, Baso % (Auto) 0.2, Absolute Neuts (auto) 9.9 H, Absolute Lymphs (auto) 1.04, Nucleated RBC % 0 06/25/21 14:10: B-Natriuretic Peptide 18.5 Micro: Microbiology 06/25/21 13:31 Mucosa - Nose Influenza Types A,B Direct FA (MONTEZ) - Final 06/25/21 13:31 Nasal Secretion SARS-CoV-2 Antigen (Rapid) - Final Radiology Impression Chest X-Ray 06/25/21 11:47 IMPRESSION: Bibasilar pneumonia. CT may be useful. Electronically Signed: Raymond Mitchell MD at 12:46 EDT , Assessment & Plan Assessment/Plan (1) Seizure disorder: (2) Heroin abuse: (3) Depression: QUALIFIERS: Depression Type: unspecified Qualified Code(s): F32.A - Depression, unspecified (4) Pneumonia: QUALIFIERS: Laterality: bilateral Lung location: unspecified part of lung Pneumonia type: due to unspecified organism Qualified Code(s): J18.9 - Pneumonia, unspecified organism PLAN: 1. Acute hypoxic respiratory failure secondary to acute bilateral pneumonia/COPD exacerbation Patient was recently diagnosed with bilateral pneumonia 06/11/2021 in [facility] on CTA chest Acute PE ruled out in the admission. COVID-19, flu, strep negative Patient declined admission and signed out AMA yesterday Saturating 87% on room air, improved on nasal cannula oxygen Encourage use of incentive spirometer, continue to wean off oxygen 2. Acute bilateral pneumonia, gram-negative organism suspect Continue on IV ceftriaxone and azithromycin Sputum cultures 3. Acute COPD exacerbation, continue on IV Solu-Medrol, breathing treatment 4. Acute opioid withdrawal, start on Subutex withdrawal protocol Addiction social work consult 5. Nicotine dependence, continue to replace 6. Seizure disorders, continue on gabapentin 7. DVT PPx-low risk, early ambulation recommended Charges/Coding Visit Charges Inpatient E&M: 91314 Init Hosp L3
[2021-06-25] MEDS: cloNIDine HCl 0.1 MG Tablet PO (16:48)
[2021-06-25] MEDS: Dicyclomine 10 MG Capsule 20 MG PO (16:48)
[2021-06-25] MEDS: Methocarbamol 750 MG Tablet 1500 MG PO (16:48)
[2021-06-25] MEDS: hydrOXYzine PAM 25 MG Capsule 50 MG PO (16:48)
[2021-06-25] MEDS: Gabapentin 600 MG Tablet PO ×2 (16:48→20:35)
[2021-06-25] MEDS: Ondansetron 8 MG Tablet PO (16:48)
[2021-06-25] MEDS: Buprenorphine HCl 2 MG TAB.SUBL SL (16:50)
[2021-06-26] VITALS (11 sets, daily range): BP systolic 105–143; BP diastolic 59–82; PULSE 82–101; RESP 16–18; TEMP 36.7–37.1; O2SAT 91–94
[2021-06-26] MEDS: Buprenorphine HCl 2 MG TAB.SUBL SL ×3 (00:24→18:17)
[2021-06-26 01:01] LABS: Amphetamine Urine VISTA NEGATIVE (<1000 ng/mL); Barbiturate Urine VISTA NEGATIVE (< 200 ng/mL); Benzodiazepine Urine VISTA NEGATIVE (< 200 ng/mL); Cocaine Urine VISTA NEGATIVE (< 300 ng/mL); Ecstacy Urine VISTA NEGATIVE (< 500 ng/mL); Methadone Urine VISTA NEGATIVE (< 300 ng/mL); PCP Urine VISTA NEGATIVE (< 25 ng/mL); THC Urine VISTA NEGATIVE (< 50 ng/mL); Vista UDS pH Range 6
[2021-06-26] MEDS: cloNIDine HCl 0.1 MG Tablet PO ×2 (05:01→21:42)
[2021-06-26] MEDS: Methocarbamol 750 MG Tablet 1500 MG PO ×2 (05:01→21:42)
[2021-06-26 05:51] LABS: Absolute Lymphocyte Count 0.84 X10^3/uL (0.83-4.51); Absolute Neutrophil Count 6.5 X10^3/uL (2.0-7.7); Basophil# 0.01 X10^3/uL; Basophil% 0.1 % (0-1); Hematocrit 44.3 % (37-47); Lymphocyte # 0.84 X10^3/ul (0.83-4.51); Lymphocyte % 11.1 % (19-41); Mean Corp Hgb Conc 31.6 g/dL (32-36); Mean Corpuscular Hgb 28.4 pg (27.0-32.0); Mean Corpuscular Volume 89.9 fL (81-99); Mean Platelet Vol. 10.9 fl (6.2-12.0); Monocyte# 0.14 X10^3/uL; Monocyte% 1.8 % (0-10); NRBC Flagged by Analyzer 0 % (0-5); Neutrophil # 6.54 X10^3/uL (2.7-7.7); Neutrophil % 86.3 % (47-70); Platelet Count 294 K/mm3 (150-450); RBC Distribution Width CV 12.1 % (11.6-14.6); RBC Distribution Width SD 40.2 fl (35.1-43.9); Red Blood Count 4.93 M/mm3 (4.2-5.4); White Blood Count 7.6 K/mm3 (4.4-11.0)
[2021-06-26 06:27] LABS: ALB/GLOB Ratio 0.7 RATIO (0.9-2.4); AST(SGOT) 15 U/L (15-37); Alanine Aminotransfer ALT/SGPT 14 U/L (13-56); Alkaline Phosphatase 41 U/L (45-117); Anion Gap 8 (5-15); BUN 10 mg/dL (7-18); BUN/Creat Ratio 19.2 RATIO (10-20); Calcium,Total 9.3 mg/dL (8.5-10.1); Chloride 108 mmol/L (98-107); Creatinine, Serum 0.52 mg/dL (0.55-1.02); EST Glomerular Filtration Rate 130 mL/min (>60); Est Glom Filt Rate - Afr Amer 157 mL/min (>60); Estimated Creatinine Clearance 118.87 ml/min; Globulin 4.5 g/dL (2.2-4.2); Glucose 121 mg/dL (74-106); Potassium 3.6 mmol/L (3.5-5.1); Protein, Total 7.5 g/dL (6.4-8.2); Sodium Level 142 mmol/L (136-145)
[2021-06-26] MEDS: Ipratropium/Albuterol Sulfate 3 ML AMPUL.NEB INHALATION ×3 (07:14→20:23)
--- NOTE | 2021-06-26 07:40 | PCM.PN.HOSP ---
Subjective Subjective Patient is a 55-year-old lady admitted with progressive shortness of breath Objective Data Objective Data Vital Signs: Vital Signs Temp Pulse Resp BP Pulse Ox 98.1 F 92 18 143/68 H 92 06/26/21 04:28 06/26/21 07:14 06/26/21 07:14 06/26/21 04:28 06/26/21 07:14 Oxygen Flow Rate (L/min) 3 Oxygen Delivery Method Nasal Cannula Weight: 74.7 kg Body Mass Index (BMI) 25.8 Intake & Output: Intake and Output for Last 24 Hours 06/24/21 06/25/21 06/26/21 23:59 23:59 23:59 Intake Total 1305 / 1305 200 / 200 Balance 1305 / 1305 200 / 200 Lab / Micro Data Result Diagrams: 06/26/21 04:54 06/26/21 04:54 Labs: Laboratory Results - last 24 hr 06/25/21 13:24: WBC Cancelled, Corrected WBC Cancelled, RBC Cancelled, Hgb Cancelled, Hct Cancelled, MCV Cancelled, MCH Cancelled, MCHC Cancelled, RDW Std Deviation Cancelled, RDW Coeff of Martin Cancelled, Plt Count Cancelled, MPV Cancelled, Immature Gran % (Auto) Cancelled, Neut % (Auto) Cancelled, Lymph % (Auto) Cancelled, Williamson % (Auto) Cancelled, Eos % (Auto) Cancelled, Baso % (Auto) Cancelled, Absolute Neuts (auto) Cancelled, Absolute Lymphs (auto) Cancelled, Total Counted Cancelled, Neutrophils % (Manual) Cancelled, Band Neutrophils % Cancelled, Lymphocytes % (Manual) Cancelled, Monocytes % (Manual) Cancelled, Eosinophils % (Manual) Cancelled, Basophils % (Manual) Cancelled, Metamyelocytes % Cancelled, Myelocytes % Cancelled, Promyelocytes % Cancelled, Blast Cells % Cancelled, Plasma Cell % (Manual) Cancelled, Other Cells % Cancelled, Nucleated RBC % Cancelled, Nucleated RBCs/100 WBC Cancelled, Differential Comment Cancelled, Diff Path Review Cancelled, Hypersegmented Neuts Cancelled, Atypical Lymphocytes Cancelled, Reactive Lymphocytes Cancelled, Smudge Cells Cancelled, Toxic Granulation Cancelled, Toxic Vacuolation Cancelled, Dohle Bodies Cancelled, Shantal Rods Cancelled, Platelet Estimate Cancelled, Plt Morphology Comment Cancelled, RBC Morphology Cancelled, Polychromasia Cancelled, Hypochromasia Cancelled, Poikilocytosis Cancelled, Basophilic Stippling Cancelled, Anisocytosis Cancelled, Microcytosis Cancelled, Macrocytosis Cancelled, Spherocytes Cancelled, Sickle Cells Cancelled, Target Cells Cancelled, Tear Drop Cells Cancelled, Ovalocytes Cancelled, Stomatocytes Cancelled, [place] Bodies Cancelled, [place] Cells Cancelled, Bite Cells Cancelled, Crenated Cell Cancelled, Acanthocytes (Spur) Cancelled, Rouleaux Cancelled, Schistocytes Cancelled 06/25/21 13:24: Sodium Cancelled, Potassium Cancelled, Chloride Cancelled, Carbon Dioxide Cancelled, Anion Gap Cancelled, BUN Cancelled, Creatinine Cancelled, Estim Creat Clear Calc Cancelled, Est GFR (MDRD) Af Amer Cancelled, Est GFR (MDRD) Non-Af Cancelled, BUN/Creatinine Ratio Cancelled, Glucose Cancelled, Calcium Cancelled, Troponin I High Sens Cancelled 06/25/21 13:24: B-Natriuretic Peptide Cancelled 06/25/21 14:10: Sodium 140, Potassium 3.5, Chloride 106, Carbon Dioxide 28.0, Anion Gap 6, BUN 6 L, Creatinine 0.47 L, Estim Creat Clear Calc 131.52, Est GFR (MDRD) Af Amer 177, Est GFR (MDRD) Non-Af 146, BUN/Creatinine Ratio 12.8, Glucose 109 H, Calcium 8.7, Troponin I High Sens 3 06/25/21 14:10: WBC 11.6 H, RBC 4.91, Hgb 14.0, Hct 43.5, MCV 88.6, MCH 28.5, MCHC 32.2, RDW Std Deviation 39.8, RDW Coeff of Martin 12.2, Plt Count 238, MPV 10.3, Immature Gran % (Auto) 0.700, Neut % (Auto) 85.8 H, Lymph % (Auto) 9.0 L, Williamson % (Auto) 4.3, Eos % (Auto) 0.0, Baso % (Auto) 0.2, Absolute Neuts (auto) 9.9 H, Absolute Lymphs (auto) 1.04, Nucleated RBC % 0 06/25/21 14:10: B-Natriuretic Peptide 18.5 06/26/21 00:05: Urine Opiates Screen NEGATIVE, Urine Methadone Screen NEGATIVE, Ur Barbiturates Screen NEGATIVE, Ur Phencyclidine Scrn NEGATIVE, Ur Amphetamines Screen NEGATIVE, MDMA (Ecstasy) Screen NEGATIVE, U Benzodiazepines Scrn NEGATIVE, Urine Cocaine Screen NEGATIVE, U Cannabinoids Screen NEGATIVE, Ur Drug Screen Comment 06/26/21 04:54: WBC 7.6, RBC 4.93, Hgb 14.0, Hct 44.3, MCV 89.9, MCH 28.4, MCHC 31.6 L, RDW Std Deviation 40.2, RDW Coeff of Martin 12.1, Plt Count 294, MPV 10.9, Immature Gran % (Auto) 0.700, Neut % (Auto) 86.3 H, Lymph % (Auto) 11.1 L, Williamson % (Auto) 1.8, Eos % (Auto) 0.0, Baso % (Auto) 0.1, Absolute Neuts (auto) 6.5, Absolute Lymphs (auto) 0.84, Nucleated RBC % 0 06/26/21 04:54: Sodium 142, Potassium 3.6, Chloride 108 H, Carbon Dioxide 26.0, Anion Gap 8, BUN 10, Creatinine 0.52 L, Estim Creat Clear Calc 118.87, Est GFR (MDRD) Af Amer 157, Est GFR (MDRD) Non-Af 130, BUN/Creatinine Ratio 19.2, Glucose 121 H, Calcium 9.3, Total Bilirubin 0.40, AST 15, ALT 14, Alkaline Phosphatase 41 L, Total Protein 7.5, Albumin 3.0 L, Globulin 4.5 H, Albumin/Globulin Ratio 0.7 L Micro: Microbiology 06/25/21 13:31 Mucosa - Nose Influenza Types A,B Direct FA (MONTEZ) - Final 06/25/21 13:31 Nasal Secretion SARS-CoV-2 Antigen (Rapid) - Final Radiography Diagnostic Testing: Radiology Impression Chest X-Ray 06/25/21 11:47 IMPRESSION: Bibasilar pneumonia. CT may be useful. Electronically Signed: Raymond Mitchell MD at 12:46 EDT , Physical Exam Narrative GENERAL: cooperative HEENT: Atraumatic; EYES; Anicteric, Normal Conjunctiva NECK; supple, normal thyroid, RESPIRATORY: Diminished to auscultation with some wheezes CARDIOVASCULAR: Regular S1 S2, GI: soft, normoactive bowel sounds, : No Renal angle tenderness; EXTREMITIES: No edema, no clubbing, MUSCULOSKELETAL: no muscle wasting NEURO: Awake; no lateralizing signs. SKIN: No Rash PSYCH; Flat affect Assessment & Plan Assessment/Plan (1) Seizure disorder: (2) Heroin abuse: (3) Depression: QUALIFIERS: Depression Type: unspecified Qualified Code(s): F32.A - Depression, unspecified (4) Pneumonia: QUALIFIERS: Laterality: bilateral Lung location: unspecified part of lung Pneumonia type: due to unspecified organism Qualified Code(s): J18.9 - Pneumonia, unspecified organism PLAN: Patient is a 55-year-old lady admitted with progressive shortness of breath 1. Acute hypoxic respiratory failure ? Secondary to combination of bilateral pneumonia and COPD exacerbation 2. Pneumonia - Suspected to be secondary to streptococcal pneumonia, Blood and sputum cultures sent. Patient placed on Rocephin and Zithromax and placed on oxygen titrated to keep Pulse Ox greater than 90 3. COPD with acute exacerbation ? Managed with systemic steroids bronchodilator treatment as well as antibiotics and supplemental oxygen 4. Opioid dependence with acute opioid withdrawal ? Started on Subutex withdrawal protocol 5. Seizure disorder ? Patient is on gabapentin 6. Tobacco dependence - Counseled on cessation, offered nicotine patch for tobacco cravings 7. DVT prophylaxis Lovenox Charges/Coding Visit Charges Inpatient E&M: 59781 Subs Hosp L2
[2021-06-26] MEDS: Gabapentin 600 MG Tablet PO ×4 (08:57→21:42)
[2021-06-26] MEDS: Ceftriaxone 1 GM/50 ML BAG IV (08:57)
[2021-06-26] MEDS: hydrOXYzine PAM 25 MG Capsule 50 MG PO (08:57)
--- NOTE | 2021-06-26 09:50 | CASEMGMT ---
FAROOQ ESCALANTE Face to Face with patient for initial transition planning/care coordination assessment. RN CM introduced self and role at [facility]. Patient lying in bed, alert and oriented. Patient willing to participate in assessment and is able to answer all questions appropriately. Care providers, pharmacy, and demographics verified. Patient wishes to discharge home, denies need for home health at this time. Patient states she has no further needs or concerns at this time. CM to follow for discharge planning needs that may arise. PCP: Labor Specialists: none [facility] [place] [place] Benefit: yes Living Will/HPOA: none LNOK: son and daughter Living Arrangements: Patient lives alone in a 2 story home. Patient states she is independent and able to ambulate stairs. Transportation: self, daughter DME/HHC: Patient denies DME or previous HHC. Patient currently on oxygen, will monitor for home oxygen at discharge. Patient states she has no preferences for DME and after list reviewed would like [employer]. Patient states she smokes 1/2 PPD of cigarettes and using about a gram or more of heroin daily. Addiction Medicine SW updated regarding heroin use. Disposition Plan: Patient plans to discharge home with follow-up plans in place. Ester RIVERO, RN, CM
--- NOTE | 2021-06-26 10:50 | ADDICTION ---
This short story writer met with PT to conduct ASAM, MSE, AUDIT, DUDIT assessments and to plan for d/c. PT A+Ox4 and participated actively. All assessments completed, faxed to [facility] and placed in PT's chart. PT plans to f/u with individual counselor at [facility] for treatment services. PT did not indicate a need for transportation post d/c from [facility].
--- NOTE | 2021-06-26 12:13 | CASEMGMT ---
FAROOQ ESCALANTE provided pt with a local healthcare provider directory for PCP's. Pt denied further needs at this time.
--- NOTE | 2021-06-26 15:26 | CHAPLAIN ---
Type of Pastoral Visit _x__ Initial Visit ___ Follow-up Visit ___ On-call Visit ___ General Patient Visit ___ Spiritual Assessment ___ Family Conference ___ Bereavement ___ Rapid Response ___ Code Blue ___ Other (describe below) Pastoral Care Referral From _x__ Patient ___ Family ___ Nurse ___ Physician ___ Delinquent Tax Collector Assistant ___ Rfid Specialist ___ Other (describe below) Sacrament/Intervention _x__ Active listening ___ Anointing ___ Restorationism ___ Bereavement ___ Communion ___ Bhakti exploration ___ _x__ Life review _x__ Prayer ___ Reconciliation ___ Sacrament of Sick _x__ Supportive presence ___ Wedding ___ Other (describe below) Pastoral Comments patient has had drug addiction and recovery in the past; pt was clean for one year and several months; pt relapsed when her son, also on heroin, came to live with her; pt speaks of dilemma of living situation; pt has lost many possessions again due to addiction when she was finally able to take care of herself; pt is not sure what is next, how to handle situation with son, and even how to get home; pt is urged to talk with 180 counselor, SW, inside sales director about her concerns in these matters; pt is tearful; pt is open to assistance and prayer support; pt may benefit from more visits from addiction counselor, SW, and wirer helper
[2021-06-27] VITALS (8 sets, daily range): BP systolic 112–123; BP diastolic 58–71; PULSE 71–85; RESP 16–18; TEMP 36.2–36.6; O2SAT 92–97
[2021-06-27] MEDS: Buprenorphine HCl 2 MG TAB.SUBL SL ×3 (01:09→18:16)
[2021-06-27] MEDS: 0.9% Saline Lock 10 ML Syringe IV ×2 (05:56→09:48)
[2021-06-27] MEDS: Methocarbamol 750 MG Tablet 1500 MG PO ×2 (05:56→14:15)
[2021-06-27] MEDS: cloNIDine HCl 0.1 MG Tablet PO (05:56)
[2021-06-27 06:12] LABS: Absolute Lymphocyte Count 1.35 X10^3/uL (0.83-4.51); Absolute Neutrophil Count 10.4 X10^3/uL (2.0-7.7); Basophil# 0.01 X10^3/uL; Basophil% 0.1 % (0-1); Hematocrit 44.1 % (37-47); Hemoglobin 13.8 g/dL (12.0-15.0); Lymphocyte # 1.35 X10^3/ul (0.83-4.51); Lymphocyte % 11.1 % (19-41); Mean Corp Hgb Conc 31.3 g/dL (32-36); Mean Corpuscular Hgb 28.5 pg (27.0-32.0); Mean Corpuscular Volume 91.1 fL (81-99); Mean Platelet Vol. 10.8 fl (6.2-12.0); Monocyte# 0.34 X10^3/uL; Monocyte% 2.8 % (0-10); NRBC Flagged by Analyzer 0 % (0-5); Neutrophil # 10.37 X10^3/uL (2.7-7.7); Neutrophil % 85.7 % (47-70); Platelet Count 319 K/mm3 (150-450); RBC Distribution Width CV 12.2 % (11.6-14.6); RBC Distribution Width SD 41.1 fl (35.1-43.9); Red Blood Count 4.84 M/mm3 (4.2-5.4); White Blood Count 12.1 K/mm3 (4.4-11.0)
[2021-06-27 06:46] LABS: ALB/GLOB Ratio 0.7 RATIO (0.9-2.4); AST(SGOT) 25 U/L (15-37); Alanine Aminotransfer ALT/SGPT 14 U/L (13-56); Albumin, Serum 2.9 g/dL (3.2-5.0); Alkaline Phosphatase 39 U/L (45-117); Anion Gap 9 (5-15); BUN 16 mg/dL (7-18); BUN/Creat Ratio 26.6 RATIO (10-20); Calcium,Total 9.1 mg/dL (8.5-10.1); Chloride 108 mmol/L (98-107); EST Glomerular Filtration Rate 110 mL/min (>60); Est Glom Filt Rate - Afr Amer 133 mL/min (>60); Estimated Creatinine Clearance 103.02 ml/min; Globulin 3.9 g/dL (2.2-4.2); Glucose 121 mg/dL (74-106); Potassium 4.4 mmol/L (3.5-5.1); Protein, Total 6.8 g/dL (6.4-8.2); Sodium Level 142 mmol/L (136-145)
[2021-06-27] MEDS: Ipratropium/Albuterol Sulfate 3 ML AMPUL.NEB INHALATION ×4 (07:44→19:25)
--- NOTE | 2021-06-27 07:51 | PN.HOSP_ITS ---
Subjective Subjective Patient seen still remains on supplemental oxygen. Has so far tolerated the Subutex taper well Objective Data Objective Data Vital Signs: Vital Signs Temp Pulse Resp BP Pulse Ox 97.8 F 76 16 122/58 H 97 06/27/21 03:47 06/27/21 03:47 06/27/21 03:47 06/27/21 03:47 06/27/21 03:47 Oxygen Flow Rate (L/min) 3.5 Oxygen Delivery Method Nasal Cannula Weight: 74.5 kg Body Mass Index (BMI) 25.8 Intake & Output: Intake and Output for Last 24 Hours 06/25/21 06/26/21 06/27/21 23:59 23:59 23:59 Intake Total 1305 / 1305 1213.00 / 1213.00 300 / 300 Balance 1305 / 1305 1213.00 / 1213.00 300 / 300 Lab / Micro Data Result Diagrams: 06/27/21 05:06 06/27/21 05:06 Labs: Laboratory Results - last 24 hr 06/27/21 05:06: WBC 12.1 H, RBC 4.84, Hgb 13.8, Hct 44.1, MCV 91.1, MCH 28.5, MCHC 31.3 L, RDW Std Deviation 41.1, RDW Coeff of Martin 12.2, Plt Count 319, MPV 10.8, Immature Gran % (Auto) 0.300, Neut % (Auto) 85.7 H, Lymph % (Auto) 11.1 L, [place]flower % (Auto) 2.8, Eos % (Auto) 0.0, Baso % (Auto) 0.1, Absolute Neuts (auto) 10.4 H, Absolute Lymphs (auto) 1.35, Nucleated RBC % 0 06/27/21 05:06: Sodium 142, Potassium 4.4, Chloride 108 H, Carbon Dioxide 25.0, Anion Gap 9, BUN 16, Creatinine 0.60, Estim Creat Clear Calc 103.02, Est GFR (MDRD) Af Amer 133, Est GFR (MDRD) Non-Af 110, BUN/Creatinine Ratio 26.6 H, Glucose 121 H, Calcium 9.1, Total Bilirubin 0.40, AST 25, ALT 14, Alkaline Phosphatase 39 L, Total Protein 6.8, Albumin 2.9 L, Globulin 3.9, Albumin/Globulin Ratio 0.7 L Micro: Microbiology 06/25/21 16:45 Sputum, Expectorated/Coughed Gram Stain - Final 06/25/21 13:31 Mucosa - Nose Influenza Types A,B Direct FA (MONTEZ) - Final 06/25/21 13:31 Nasal Secretion SARS-CoV-2 Antigen (Rapid) - Final Physical Exam Narrative GENERAL: cooperative HEENT: Atraumatic; EYES; Anicteric, Normal Conjunctiva NECK; supple, normal thyroid, RESPIRATORY: Diminished to auscultation with some wheezes CARDIOVASCULAR: Regular S1 S2, GI: soft, normoactive bowel sounds, : No Renal angle tenderness; EXTREMITIES: No edema, no clubbing, MUSCULOSKELETAL: no muscle wasting NEURO: Awake; no lateralizing signs. SKIN: No Rash PSYCH; Flat affect Assessment & Plan Assessment/Plan (1) Pneumonia: QUALIFIERS: Laterality: bilateral Lung location: unspecified part of lung Pneumonia type: due to unspecified organism Qualified Code(s): J18.9 - Pneumonia, unspecified organism PLAN: Patient is a 55-year-old lady admitted with progressive shortness of breath 1. Acute hypoxic respiratory failure ? Secondary to combination of bilateral pneumonia and COPD exacerbation ? 06/27/2021 patient remains on supplemental oxygen 2. Pneumonia - Suspected to be secondary to streptococcal pneumonia, Blood and sputum cultures sent. Patient placed on Rocephin and Zithromax and placed on oxygen titrated to keep Pulse Ox greater than 90 ? 06/27/2021 cultures so far negative to date 3. COPD with acute exacerbation ? Managed with systemic steroids bronchodilator treatment as well as antibiotics and supplemental oxygen 4. Opioid dependence with acute opioid withdrawal ? Started on Subutex withdrawal protocol ? 06/27/2021 patient has tolerated the Subutex taper well so far 5. Seizure disorder ? Patient is on gabapentin 6. Tobacco dependence - Counseled on cessation, offered nicotine patch for tobacco cravings 7. DVT prophylaxis Lovenox Charges/Coding Visit Charges Inpatient E&M: 63466 Subs Hosp L2
[2021-06-27] MEDS: Gabapentin 300 MG Capsule PO ×2 (08:05→08:09)
--- NOTE | 2021-06-27 08:10 | NURSING ---
GAVE PRN GABAPENTIN, THEN REALIZED PT ALSO GETS SCHEDULED. PULLED 2ND PRN DOSE AND ADM TO EQUAL SCHEDULED DOSE. WILL VERIFY W/DR THAT BOTH PRN AND SCHEDULED ARE TO BE GIVEN.
[2021-06-27] MEDS: Ceftriaxone 1 GM/50 ML BAG IV (09:48)
--- NOTE | 2021-06-27 11:09 | ADDICTION ---
This worker met with pt to discuss d/c planning. She reports that she still plans on following up with MAT with Dr. Mendez but does not think she needs more treatment.
[2021-06-27] MEDS: Gabapentin 600 MG Tablet PO ×3 (14:15→21:30)
[2021-06-27] MEDS: Cefdinir 300 MG Capsule PO (21:30)
[2021-06-28] VITALS (8 sets, daily range): BP systolic 123–132; BP diastolic 67–81; PULSE 70–91; RESP 14–20; TEMP 36.2–36.8; O2SAT 91–99
[2021-06-28] MEDS: Buprenorphine HCl 2 MG TAB.SUBL SL (05:44)
--- NOTE | 2021-06-28 07:20 | PCM.PN.HOSP ---
Subjective Subjective Patient seen still appears ill looking. Plan is for patient to be weaned off oxygen this a.m. Objective Data Objective Data Vital Signs: Vital Signs Temp Pulse Resp BP Pulse Ox 97.8 F 70 14 123/67 H 97 06/28/21 02:30 06/28/21 02:30 06/28/21 02:30 06/28/21 02:30 06/28/21 02:30 Oxygen Flow Rate (L/min) 3 Oxygen Delivery Method Nasal Cannula Weight: 74.5 kg Body Mass Index (BMI) 25.8 Intake & Output: Intake and Output for Last 24 Hours 06/26/21 06/27/21 06/28/21 23:59 23:59 23:59 Intake Total 1213.00 / 1213.00 755 / 755 Balance 1213.00 / 1213.00 755 / 755 Medical Nutrition Assessment Dietitian: Malnutrition Criteria Met Start: 06/27/21 12:13 Freq: Status: Active Protocol: Document 06/27/21 12:13 RMA (Rec: 06/27/21 12:13 RMA [id number]) Nutrition Malnutrition Evidence of Malnutrition Exists Yes Malnutrition (severe): Social/Behavioral/ Environmental Evidenced By Suboptimal Energy Intake ( Severe),Weight Loss (Severe) Clinical Problem Chronic Disease or Condition Related Malnutrition Etiology Severe protein-calorie malnutrition in the context of social circumstance related to drug/alcohol abuse and inadequate oral intake Signs/Symptoms as evidenced by ~9% wt loss x past 1-2 months and oral intake meeting less than 50% estimated nutrition needs Status Active Problem Recommendation Dietitian Recommendations/Changes Continue regular diet as ordered; encourage improved intake at meals as pt is refusing all ONS at this time. ONS offer at follow-up if patient willing to try. Lab / Micro Data Result Diagrams: 06/27/21 05:06 06/27/21 05:06 Micro: Microbiology 06/25/21 16:45 Sputum, Expectorated/Coughed Gram Stain - Final 06/25/21 16:45 Sputum, Expectorated/Coughed Respiratory Culture - Preliminary Appears to be normal respiratory chung. Further studies to follow. 06/25/21 13:31 Mucosa - Nose Influenza Types A,B Direct FA (MONTEZ) - Final 06/25/21 13:31 Nasal Secretion SARS-CoV-2 Antigen (Rapid) - Final Physical Exam Narrative GENERAL: cooperative HEENT: Atraumatic; EYES; Anicteric, Normal Conjunctiva NECK; supple, normal thyroid, RESPIRATORY: Diminished to auscultation with some wheezes CARDIOVASCULAR: Regular S1 S2, GI: soft, normoactive bowel sounds, : No Renal angle tenderness; EXTREMITIES: No edema, no clubbing, MUSCULOSKELETAL: no muscle wasting NEURO: Awake; no lateralizing signs. SKIN: No Rash PSYCH; Flat affect Assessment & Plan Assessment/Plan (1) Pneumonia: QUALIFIERS: Laterality: bilateral Lung location: unspecified part of lung Pneumonia type: due to unspecified organism Qualified Code(s): J18.9 - Pneumonia, unspecified organism PLAN: Patient is a 55-year-old lady admitted with progressive shortness of breath 1. Acute hypoxic respiratory failure ? Secondary to combination of bilateral pneumonia and COPD exacerbation ? 06/27/2021 patient remains on supplemental oxygen ? 06/28/2021;Patient seen still appears ill looking. Plan is for patient to be weaned off oxygen this a.m. 2. Pneumonia - Suspected to be secondary to streptococcal pneumonia, Blood and sputum cultures sent. Patient placed on Rocephin and Zithromax and placed on oxygen titrated to keep Pulse Ox greater than 90 ? 06/27/2021 cultures so far negative to date 3. COPD with acute exacerbation ? Managed with systemic steroids bronchodilator treatment as well as antibiotics and supplemental oxygen 4. Opioid dependence with acute opioid withdrawal ? Started on Subutex withdrawal protocol ? 06/27/2021 patient has tolerated the Subutex taper well so far 5. Seizure disorder ? Patient is on gabapentin 6. Tobacco dependence - Counseled on cessation, offered nicotine patch for tobacco cravings 7. DVT prophylaxis Lovenox Charges/Coding Visit Charges Inpatient E&M: 59465 Subs Hosp L2
[2021-06-28] MEDS: Ipratropium/Albuterol Sulfate 3 ML AMPUL.NEB INHALATION ×4 (07:28→19:55)
--- NOTE | 2021-06-28 09:10 | NURSING ---
attempted to call son, mahin, to let him know pt will not be dc'd today and will have her phone later this evening. will try again later.
--- NOTE | 2021-06-28 10:47 | ADDICTION ---
Spoke with pt today about her d/c and follow treatment. Informed her that Dr. Mendez would like her to do the Intensive Outpatient Program in order to Stay on MAT. Pt agreed and reports she will follow up after d/c.
[2021-06-28] MEDS: Gabapentin 600 MG Tablet PO ×4 (11:01→22:10)
[2021-06-28] MEDS: predniSONE 20 MG Tablet 40 MG PO (11:01)
[2021-06-28] MEDS: Cefdinir 300 MG Capsule PO ×2 (11:02→22:10)
[2021-06-28] MEDS: Azithromycin 250 MG Tablet 500 MG PO (11:02)
--- NOTE | 2021-06-28 11:02 | NURSING ---
computers not working correctly when am meds given, paper mar used.
--- NOTE | 2021-06-28 12:28 | NURSING ---
was able to contact son, mahin. he is aware pt will not be dc'd today but possibly tomorrow.
[2021-06-28] MEDS: hydrOXYzine PAM 25 MG Capsule 50 MG PO (17:37)
[2021-06-29 02:05] VITALS: BP 133/67; PULSE 63; RESP 16; TEMP 36.8; O2SAT 97
[2021-06-29 07:00] VITALS: O2SAT 97
--- NOTE | 2021-06-29 07:16 | DS.PCM_ITS ---
Providers Date of Admission: 06/25/21 Primary Care Physician: Dr. Denae Mendez, DO Reason For Visit: PNEUMONIA/HYPOXIA/OPIOID WITHDRAWAL Diagnosis Discharge Diagnosis (1) Pneumonia: Status: Acute Code(s): J18.9 - Pneumonia, unspecified organism Qualifiers: Laterality: bilateral Lung location: unspecified part of lung Pneumonia type: due to unspecified organism Qualified Code(s): J18.9 - Pneumonia, unspecified organism Medications at Discharge Home Medications gabapentin 600 mg PO 4X/DAY 09/18/19 trazodone 100 mg PO QHS 09/18/19 hydroxyzine pamoate 50 mg PO Q4H PRN PRN #90 cap 09/22/19 azithromycin 500 mg PO Q24 #3 tab 06/29/21 cefdinir 300 mg PO Q12 #10 cap 06/29/21 prednisone 40 mg PO BREAKFAST #10 tab 06/29/21 Hospital Course Operations None Procedures None Summary of Care Provided Minutes Spent on Discharge: 35 Hospital Course: 1. Acute hypoxic respiratory failure ? Secondary to combination of bilateral pneumonia and COPD exacerbation ? 06/27/2021 patient remains on supplemental oxygen ? 06/28/2021;Patient seen still appears ill looking. Plan is for patient to be weaned off oxygen this a.m. ? 06/29/2021 patient was assessed for home oxygen she did qualify she would need portability since he is active both at home as well as in the community 2. Pneumonia - Suspected to be secondary to streptococcal pneumonia, Blood and sputum cultures sent. Patient placed on Rocephin and Zithromax and placed on oxygen titrated to keep Pulse Ox greater than 90 ? 06/27/2021 cultures so far negative to date 3. COPD with acute exacerbation ? Managed with systemic steroids bronchodilator treatment as well as antibiotics and supplemental oxygen 4. Opioid dependence with acute opioid withdrawal ? Started on Subutex withdrawal protocol ? 06/27/2021 patient has tolerated the Subutex taper well so far 5. Seizure disorder ? Patient is on gabapentin 6. Tobacco dependence - Counseled on cessation, offered nicotine patch for tobacco cravings 7. DVT prophylaxis Lovenox 8. Severe protein-calorie malnutrition -in the context of social circumstance related to drug/alcohol abuse and inadequate oral intake as evidenced by ~9% wt loss x past 1-2 months and oral in take meeting less than 50% estimated nutrition needs with trt: Continue regular diet as ordered; encourage improved intake at meals as pt is refusing all ONS at this time. ONS offer at follow-up if patient willing to try. Physical Exam Narrative GENERAL: cooperative HEENT: Atraumatic; EYES; Anicteric, Normal Conjunctiva NECK; supple, normal thyroid, RESPIRATORY: Diminished to auscultation with some wheezes CARDIOVASCULAR: Regular S1 S2, GI: soft, normoactive bowel sounds, : No Renal angle tenderness; EXTREMITIES: No edema, no clubbing, MUSCULOSKELETAL: no muscle wasting NEURO: Awake; no lateralizing signs. SKIN: No Rash PSYCH; Flat affect Medical Records Data Medical Nutrition Assessment Dietitian: Malnutrition Criteria Met Start: 06/27/21 12:13 Freq: Status: Active Protocol: Document 06/27/21 12:13 RMA (Rec: 06/27/21 12:13 RMA [id number]) Nutrition Malnutrition Evidence of Malnutrition Exists Yes Malnutrition (severe): Social/Behavioral/ Environmental Evidenced By Suboptimal Energy Intake ( Severe),Weight Loss (Severe) Clinical Problem Chronic Disease or Condition Related Malnutrition Etiology Severe protein-calorie malnutrition in the context of social circumstance related to drug/alcohol abuse and inadequate oral intake Signs/Symptoms as evidenced by ~9% wt loss x past 1-2 months and oral intake meeting less than 50% estimated nutrition needs Status Active Problem Recommendation Dietitian Recommendations/Changes Continue regular diet as ordered; encourage improved intake at meals as pt is refusing all ONS at this time. ONS offer at follow-up if patient willing to try. Weight / BMI Weight Weight: 74.5 kg Body Mass Index (BMI) 25.8 ABG / Lab / Microbiology Data Result Diagrams: 06/27/21 05:06 06/27/21 05:06 Microbiology: Microbiology 06/25/21 16:45 Sputum, Expectorated/Coughed Gram Stain - Final 06/25/21 16:45 Sputum, Expectorated/Coughed Respiratory Culture - Final 06/25/21 13:31 Mucosa - Nose Influenza Types A,B Direct FA (MONTEZ) - Final 06/25/21 13:31 Nasal Secretion SARS-CoV-2 Antigen (Rapid) - Final D/C Instructions Discharge Diet: No restrictions Discharge Activity: Return to Normal Activity Call your doctor if you observe: Fever of 101 or Higher, Shortness of breath, Fainting spells and Chest pain Meaningful Use Info Meaningful Use Diagnoses (Choose all that apply): None applicable Discharge Plan Admission Admit Date/Time: 06/25/21 14:48 Attending Provider: Malick Connolly Primary Care Provider: Denae Mendez Consulting Providers: Shellie Hilliard Discharge Orders/Prescriptions Prescriptions: New azithromycin 250 mg Tablet 500 mg PO Q24 Qty: 3 RF: 0 prednisone 20 mg Tablet 40 mg PO BREAKFAST Qty: 10 RF: 0 cefdinir 300 mg Capsule 300 mg PO Q12 Qty: 10 RF: 0 Continued trazodone 50 MG tablet 100 mg PO QHS RF: 0 gabapentin 800 MG tablet 600 mg PO 4X/DAY RF: 0 hydroxyzine pamoate 25 MG capsule 50 mg PO Q4H PRN PRN (Reason: mild anxiety) Qty: 90 RF: 0 Referrals / Follow Up: Denae Mendez DO [Primary Care Provider] - Within 1 Week Disposition Disposition (needs filled in before D/C Order can be placed): Home, Self Care Charges/Coding Visit Charges Inpatient E&M: 21695 Disch Hosp
[2021-06-29 07:31] VITALS: O2SAT 88
[2021-06-29 07:36] VITALS: O2SAT 90
[2021-06-29] MEDS: Gabapentin 600 MG Tablet PO (09:04)
[2021-06-29] MEDS: predniSONE 20 MG Tablet 40 MG PO (09:04)
[2021-06-29] MEDS: Cefdinir 300 MG Capsule PO (09:05)
[2021-06-29] MEDS: Azithromycin 250 MG Tablet 500 MG PO (09:05)
[2021-06-29 09:06] VITALS: BP 140/69; PULSE 85; RESP 16; TEMP 36.7; O2SAT 95
[2021-06-29 10:16] VITALS: O2SAT 88; O2SAT 90; O2SAT 91
--- NOTE | 2021-06-29 10:23 | CASEMGMT ---
Pt qualifies for home oxygen. RN CM in to pt room with portable tank. Pt aware to call [employer] as soon as she is home for concentrator. Pox provided to nurse. Faxed referral to [employer] at this time. Pt denies further questions.
--- NOTE | 2021-06-29 14:25 | CASEMGMT ---
Pt called in and was requesting [employer]'s phone number. TC back to pt and she states that she found it and already called and they are coming out to deliver the concentrator.
--- NOTE | 2021-07-07 10:07 | CASEMGMT ---
Social Work SW received call from pt who states her electric is going to be turned off today. Pt was discharged on 06/29/21 on home oxygen. Pt stating that electric company can be called by medical professional and and extension to keep electricity on can be requested. Pt does not have a PCP. SW inquired about this and pt states she did make an appointment with Dr. Yuli Cox for a new pt start of care on 07/13/21. SW inquired about transportation and pt states she has already set up transportation with [facility]. SW placed call to [facility] [phone] and spoke with Ilana. Ilana emailed SW a 30 day Medical Certification of Illness and if completed electricity will not be shut off for 30 days. BLAINE spoke with physician who completed document. Form faxed back to [facility]. Phone call back to pt and informed that form was faxed to [facility]. SW inquired with pt what she would do to keep electricity on. Pt states that she gets paid on 07/12 and paying electric bill will be her first priority. BLAINE inquired about followup with Edward and pt states she has an appointment on 07/12 and has already set up transportation with [facility]. EDUARD Glover
== END 2021-06-29 10:45 | disposition home or self-care (01) | DRG 139 ==
LOC: ED 13:46 → MS3 15:21
PROVIDERS: Admitting Provider Internal Medicine; Emergency Provider Emergency Medicine; PCP Family Medicine; Visit Provider Internal Medicine
DX: J15.4 Pneumonia due to other streptococci (principal); J96.01 Acute respiratory failure with hypoxia; E43 Unspecified severe protein-calorie malnutrition; J44.1 Chronic obstructive pulmonary disease with (acute) exacerbation; G40.909 Epilepsy, unspecified, not intractable, without status epilepticus; J44.0 Chronic obstructive pulmonary disease with (acute) lower respiratory infection; F11.23 Opioid dependence with withdrawal; F17.210 Nicotine dependence, cigarettes, uncomplicated; Z68.25 Body mass index [BMI] 25.0-25.9, adult; Z28.310 Unvaccinated for COVID-19; Z28.9 Immunization not carried out for unspecified reason; Z79.899 Other long term (current) drug therapy
CPT/HCPCS: 36415; 71045; 80048; 80053; 80307; 83880; 84484; 85025; 87070; 87205; 87426; 87804; 93005; 94640; 99251; 99284; 99406; J7030; J7050; A4216; G0463